=== PATIENT | male | born 1955 | race Caucasian/White ===

== ENCOUNTER 2017-08-19 08:58 | Emergency (ER) | payer MEDICARE, MEDICAID ==
[~2017-08-19] VITALS: Ht 170.2 cm; Wt 107.0 kg
[~2017-08-19 08:58] MED LIST: ACAR25TA2 PO; ASPI-1159 PO; ATOR20TA PO; DOCU-138 PO; GABA-531 PO; GLIP10TA10 PO; METF10002 PO; NIAC500T2 PO; OLME20TA14 PO; PIOG45TA5 PO; PRAS10TA6 PO; RANO500T3 PO; TAMS0.4C31 PO; UBID100C12 PO; novalog; novalog *
[2017-08-19 09:01] VITALS: BP 166/88
[2017-08-19] MEDS ORDERED: ACETAMINOPHEN 500MG TABLET PO ONE (10:15)
== END 2017-08-19 11:15 | disposition home or self-care (01) ==
LOC: ER 09:55
DX: M79.674 Pain in right toe(s) (principal); E11.9 Type 2 diabetes mellitus without complications; I51.9 Heart disease, unspecified; E78.00 Pure hypercholesterolemia, unspecified; Z86.73 Personal history of transient ischemic attack (TIA), and cerebral infarction without residual deficits; Z79.82 Long term (current) use of aspirin; Z88.8 Allergy status to other drugs, medicaments and biological substances; W22.09XA Striking against other stationary object, initial encounter; Y93.89 Activity, other specified; Y92.018 Other place in single-family (private) house as the place of occurrence of the external cause
CPT/HCPCS: 73630; 99284

== ENCOUNTER 2018-08-05 07:26 | Inpatient (IN) | payer MEDICARE, MEDICAID ==
[~2018-08-05] VITALS: Ht 165.1 cm; Wt 117.9 kg
[~2018-08-05 07:26] MED LIST changes: +METF-416 PO; -METF10002 PO
[2018-08-05] MEDS ORDERED: SODIUM CHLORIDE 0.9% 500 ML IV ONE (09:15)
[2018-08-05] MEDS ORDERED: HYDROCODONE/ACETAMINOPHEN 5/325MG TABLET PO ONE (09:15)
[2018-08-05] MEDS ORDERED: MORPHINE SULFATE 10 MG/ML CPJ IV ONE ×2 (11:15→13:30)
[2018-08-05] MEDS ORDERED: ONDANSETRON HCL 4MG/2ML INJ IV ONE (11:15)
[2018-08-05 11:27] LABS: BASOPHILS % 0.7 % (0.0-2.0); EOSINOPHILS % 1.4 % (0.0-5.0); HEMATOCRIT. 42.4 % (42.0-52.0); HEMOGLOBIN. 14.1 g/dL (14.0-18.0); MEAN CORPUSCULAR HEMOGLOBIN 30.5 pg (28.0-32.0); MEAN CORPUSCULAR VOLUME 91.9 fL (80.0-94.0); MEAN PLATELET VOLUME 10.3 fl (7.4-10.4); MONOCYTES % 8.6 % (2.0-8.0); NEUTROPHILS % 72.3 % (40.0-76.0); PLATELET 244 x1000/uL (130-400); RED BLOOD CELL COUNT 4.61 mill/uL (4.7-6.1); RED CELL DISTRIBUTION WIDTH 14.1 % (11.6-14.6)
[2018-08-05 11:28] LABS: CHLORIDE 103 mEq/L (98-107)
[2018-08-05 11:31] LABS: PARTIAL THROMBOPLASTIN TIME 26.3 sec (23.4-31.0); PROTHROMBIN TIME 9.7 sec (9.1-11.1)
[2018-08-05] MEDS ORDERED: DEXTROSE 50% WATER 50ML SYRINGE IV PRN (14:30)
[2018-08-05] MEDS: BLOOD SUGAR DIAGNOSTIC STRIP TEST SCH ×2 (17:00→20:27)
[2018-08-05 17:24] LABS: CLARITY URINE TURBID (CLEAR); COLOR URINE YELLOW (YELLOW); KETONES URINE NEGATIVE (NEGATIVE); LEUKOCYTE ESTERASE URINE 2+ (NEGATIVE); NITRITE URINE NEGATIVE (NEGATIVE); OCCULT BLOOD URINE TRACE (NEGATIVE); PROTEIN URINE TRACE (NEGATIVE); SPECIFIC GRAVITY URINE 1.037 (1.005-1.030); UROBILINOGEN URINE 0.2 E.U./dL (0.2-1.0)
[2018-08-05 17:47] VITALS: BP 171/91
[2018-08-05] MEDS: INSULIN LISPRO 100 UNITS/ML SUBCUT SCH ×2 (18:30→21:00)
[2018-08-05] MEDS: DOCUSATE SODIUM 100MG CAPSULE PO SCH (18:30)
[2018-08-05 20:00] VITALS: BP 150/73
[2018-08-05] MEDS: ATORVASTATIN CALCIUM 20MG TABLET PO SCH (20:23)
[2018-08-05] MEDS: RANOLAZINE 500 MG TAB.SR.12H PO SCH (20:23)
[2018-08-05] MEDS: GABAPENTIN 300MG CAPSULE PO SCH (21:17)
[2018-08-06] VITALS: BP 142/73
[2018-08-06 04:00] VITALS: BP 129/73
[2018-08-06] MEDS: GABAPENTIN 300MG CAPSULE PO SCH ×3 (06:11→21:00)
[2018-08-06] MEDS: BLOOD SUGAR DIAGNOSTIC STRIP TEST SCH ×4 (06:12→20:08)
[2018-08-06] MEDS: HYDROMORPHONE HCL/PF 2MG/ML CPJ IV PRN (06:20)
[2018-08-06] MEDS: INSULIN LISPRO 100 UNITS/ML SUBCUT SCH ×7 (06:25→20:36)
[2018-08-06 06:43] LABS: BASOPHILS % 0.6 % (0.0-2.0); EOSINOPHILS % 2.4 % (0.0-5.0); HEMATOCRIT. 39.3 % (42.0-52.0); HEMOGLOBIN. 12.9 g/dL (14.0-18.0); LYMPHOCYTES % 26.7 % (20.0-50.0); MEAN CORPUSCULAR HEMOGLOBIN 30.1 pg (28.0-32.0); MEAN CORPUSCULAR VOLUME 91.7 fL (80.0-94.0); MEAN PLATELET VOLUME 9.9 fl (7.4-10.4); MONOCYTES % 9.8 % (2.0-8.0); NEUTROPHILS % 60.5 % (40.0-76.0); PLATELET 215 x1000/uL (130-400); RED BLOOD CELL COUNT 4.28 mill/uL (4.7-6.1); RED CELL DISTRIBUTION WIDTH 14.1 % (11.6-14.6)
[2018-08-06 08:00] VITALS: BP 96/46
[2018-08-06] MEDS: TAMSULOSIN HCL 0.4MG SR CAPSULE PO SCH (09:00)
[2018-08-06] MEDS: DOCUSATE SODIUM 100MG CAPSULE PO SCH ×2 (09:12→16:43)
[2018-08-06] MEDS: LINAGLIPTIN 5MG TABLET PO SCH (09:13)
[2018-08-06] MEDS: RANOLAZINE 500 MG TAB.SR.12H PO SCH ×2 (09:13→20:34)
[2018-08-06] MEDS: PIOGLITAZONE 15MG TABLET PO SCH (09:13)
[2018-08-06] MEDS: ASPIRIN 81MG EC TABLET PO SCH (09:13)
[2018-08-06] MEDS: ONDANSETRON HCL 4MG/2ML INJ IV PRN (09:14)
[2018-08-06] MEDS: INSULIN GLARGINE UD 100 UNITS/ML SYR SUBCUT SCH (09:15)
[2018-08-06 09:56] LABS: CHLORIDE 105 mEq/L (98-107)
[2018-08-06 10:06] LABS: LDL CHOLESTEROL 74 mg/dL (5-100)
[2018-08-06 10:07] LABS: CREATINE KINASE 46 IU/L (39-308); CREATINE KINASE MB FRACTION 1.4 ng/mL (0.5-3.6); HDL CHOLESTEROL 41 mg/dL (40-59)
[2018-08-06 12:00] VITALS: BP_SYST 132; BP_SYST 135; BP_SYST 141; BP_DIAS 61; BP_DIAS 63; BP_DIAS 81
[2018-08-06] MEDS: TRAMADOL 50MG TABLET PO PRN ×2 (13:02→20:34)
[2018-08-06 16:40] VITALS: BP 115/56
[2018-08-06] MEDS: EFFIENT 10 MG PO SCH (16:43)
[2018-08-06 20:04] VITALS: BP 98/50
[2018-08-06] MEDS: ATORVASTATIN CALCIUM 20MG TABLET PO SCH (20:33)
[2018-08-07] VITALS: BP 128/69
[2018-08-07 05:00] VITALS: BP_SYST 128; BP_SYST 135; BP_SYST 143; BP_DIAS 63; BP_DIAS 68; BP_DIAS 69
[2018-08-07] MEDS: GABAPENTIN 300MG CAPSULE PO SCH ×2 (05:52→13:36)
[2018-08-07] MEDS: TRAMADOL 50MG TABLET PO PRN (05:53)
[2018-08-07] MEDS: BLOOD SUGAR DIAGNOSTIC STRIP TEST SCH ×2 (06:15→12:02)
[2018-08-07] MEDS: INSULIN LISPRO 100 UNITS/ML SUBCUT SCH ×4 (06:16→12:14)
[2018-08-07 06:52] LABS: BASOPHILS % 0.5 % (0.0-2.0); EOSINOPHILS % 1.7 % (0.0-5.0); HEMATOCRIT. 41.1 % (42.0-52.0); HEMOGLOBIN. 13.6 g/dL (14.0-18.0); LYMPHOCYTES % 23.7 % (20.0-50.0); MEAN CORPUSCULAR HEMOGLOBIN 30.4 pg (28.0-32.0); MEAN PLATELET VOLUME 9.4 fl (7.4-10.4); MONOCYTES % 10.8 % (2.0-8.0); NEUTROPHILS % 63.3 % (40.0-76.0); PLATELET 224 x1000/uL (130-400); RED BLOOD CELL COUNT 4.47 mill/uL (4.7-6.1); RED CELL DISTRIBUTION WIDTH 13.6 % (11.6-14.6)
[2018-08-07 07:08] LABS: CHLORIDE 105 mEq/L (98-107)
[2018-08-07] MEDS: PIOGLITAZONE 15MG TABLET PO SCH (08:15)
[2018-08-07] MEDS: TAMSULOSIN HCL 0.4MG SR CAPSULE PO SCH (08:19)
[2018-08-07] MEDS: RANOLAZINE 500 MG TAB.SR.12H PO SCH (08:20)
[2018-08-07] MEDS: DOCUSATE SODIUM 100MG CAPSULE PO SCH (08:20)
[2018-08-07] MEDS: LINAGLIPTIN 5MG TABLET PO SCH (08:20)
[2018-08-07] MEDS: EFFIENT 10 MG PO SCH (08:20)
[2018-08-07] MEDS: ASPIRIN 81MG EC TABLET PO SCH (08:20)
[2018-08-07] MEDS: HYDROMORPHONE HCL/PF 2MG/ML CPJ IV PRN (08:21)
[2018-08-07 08:27] VITALS: BP 128/75
[2018-08-07] MEDS: ONDANSETRON HCL 4MG/2ML INJ IV PRN (08:48)
[2018-08-07] MEDS: INSULIN GLARGINE UD 100 UNITS/ML SYR SUBCUT SCH (09:38)
[2018-08-07 13:39] VITALS: BP 123/82
== END 2018-08-07 15:36 | DRG 206 ==
LOC: ER 07:26 → 8WST 13:34 → EDBEDREQ 13:35 → CANRESERV 13:57 → ENRESERV 13:57 → EDBEDREQSVC 15:11 → ENRESERV 16:18
PROVIDERS: ADMIT Specialist; ATTEND Specialist
DX: S22.32XA Fracture of one rib, left side, initial encounter for closed fracture (principal); Z68.41 Body mass index [BMI] 40.0-44.9, adult; I69.354 Hemiplegia and hemiparesis following cerebral infarction affecting left non-dominant side; E66.01 Morbid (severe) obesity due to excess calories; G47.33 Obstructive sleep apnea (adult) (pediatric); E78.00 Pure hypercholesterolemia, unspecified; W18.39XA Other fall on same level, initial encounter; E11.65 Type 2 diabetes mellitus with hyperglycemia; E11.42 Type 2 diabetes mellitus with diabetic polyneuropathy; E11.51 Type 2 diabetes mellitus with diabetic peripheral angiopathy without gangrene; E78.5 Hyperlipidemia, unspecified; I11.9 Hypertensive heart disease without heart failure; N40.0 Benign prostatic hyperplasia without lower urinary tract symptoms; I25.10 Atherosclerotic heart disease of native coronary artery without angina pectoris; I25.2 Old myocardial infarction; Z79.84 Long term (current) use of oral hypoglycemic drugs; Z80.42 Family history of malignant neoplasm of prostate; Z81.1 Family history of alcohol abuse and dependence; Z82.49 Family history of ischemic heart disease and other diseases of the circulatory system; Z83.3 Family history of diabetes mellitus; Z95.1 Presence of aortocoronary bypass graft; Z95.5 Presence of coronary angioplasty implant and graft; Z88.8 Allergy status to other drugs, medicaments and biological substances; Z79.899 Other long term (current) drug therapy; Y93.89 Activity, other specified; Y92.89 Other specified places as the place of occurrence of the external cause; Y99.8 Other external cause status
CPT/HCPCS: 36415; 71045; 71101; 71250; 80048; 80061; 82550; 82553; 82962; 83036; 83735; 83880; 84443; 84484; 85379; 93005; 93970; 96361; 96374; 96375; 96376; 97162; 99285; J1170; J1815; J2270; J2405; J7040

== ENCOUNTER 2018-08-07 15:45 | Inpatient (IN) | payer MEDICARE, MEDICAID ==
[~2018-08-07] VITALS: Ht 165.1 cm; Wt 117.9 kg
[2018-08-07] MEDS ORDERED: ONDANSETRON HCL 4MG/2ML INJ IV PRN (17:45)
[2018-08-07] MEDS ORDERED: HYDROMORPHONE HCL/PF 2MG/ML CPJ IV PRN (17:45)
[2018-08-07] MEDS ORDERED: DEXTROSE 50% WATER 50ML SYRINGE IV PRN (18:00)
[2018-08-07 18:03] VITALS: BP 134/83
[2018-08-07 18:04] VITALS: BP 134/83
[2018-08-07 20:00] VITALS: BP 105/50
[2018-08-07] MEDS: RANOLAZINE 500 MG TAB.SR.12H PO SCH (21:37)
[2018-08-07] MEDS: GABAPENTIN 300MG CAPSULE PO SCH (21:37)
[2018-08-07] MEDS: ATORVASTATIN CALCIUM 20MG TABLET PO SCH (21:37)
[2018-08-07] MEDS: BLOOD SUGAR DIAGNOSTIC STRIP TEST SCH (21:37)
[2018-08-07] MEDS: INSULIN LISPRO 100 UNITS/ML SUBCUT SCH (22:02)
[2018-08-08] MEDS: BLOOD SUGAR DIAGNOSTIC STRIP TEST SCH ×4 (06:33→21:21)
[2018-08-08] MEDS: GABAPENTIN 300MG CAPSULE PO SCH ×3 (06:33→21:20)
[2018-08-08] MEDS: INSULIN LISPRO 100 UNITS/ML SUBCUT SCH ×7 (07:02→21:00)
[2018-08-08 07:42] LABS: BASOPHILS % 0.6 % (0.0-2.0); CHLORIDE 102 mEq/L (98-107); EOSINOPHILS % 0.9 % (0.0-5.0); HEMATOCRIT. 38.4 % (42.0-52.0); HEMOGLOBIN. 12.8 g/dL (14.0-18.0); LYMPHOCYTES % 14.2 % (20.0-50.0); MEAN CORPUSCULAR HEMOGLOBIN 30.8 pg (28.0-32.0); MEAN CORPUSCULAR VOLUME 92.2 fL (80.0-94.0); MEAN PLATELET VOLUME 9.5 fl (7.4-10.4); MONOCYTES % 10.8 % (2.0-8.0); NEUTROPHILS % 73.5 % (40.0-76.0); PLATELET 227 x1000/uL (130-400); RED BLOOD CELL COUNT 4.16 mill/uL (4.7-6.1); RED CELL DISTRIBUTION WIDTH 14.2 % (11.6-14.6)
[2018-08-08 08:08] VITALS: BP 134/101
[2018-08-08] MEDS: LINAGLIPTIN 5MG TABLET PO SCH (08:53)
[2018-08-08] MEDS: ASPIRIN 81MG EC TABLET PO SCH (08:54)
[2018-08-08] MEDS: RANOLAZINE 500 MG TAB.SR.12H PO SCH ×2 (08:54→21:21)
[2018-08-08] MEDS: PIOGLITAZONE 45MG TABLET PO SCH (08:54)
[2018-08-08] MEDS: TAMSULOSIN HCL 0.4MG SR CAPSULE PO SCH (08:55)
[2018-08-08] MEDS ORDERED: DOCUSATE SODIUM 100MG CAPSULE PO SCH (09:00)
[2018-08-08] MEDS: INSULIN GLARGINE UD 100 UNITS/ML SYR SUBCUT SCH (10:04)
[2018-08-08] MEDS: LACTULOSE 20G/30ML UDC PO SCH ×3 (10:23→16:41)
[2018-08-08] MEDS: DOCUSATE SODIUM 100MG CAPSULE PO SCH (16:54)
[2018-08-08 20:10] VITALS: BP 107/97
[2018-08-08] MEDS: POLYETHYLENE GLYCOL 3350 (17GM) 1 DOSE PACK PO SCH (21:00)
[2018-08-08] MEDS: ATORVASTATIN CALCIUM 20MG TABLET PO SCH (21:20)
[2018-08-09] MEDS: GABAPENTIN 300MG CAPSULE PO SCH ×3 (05:41→21:24)
[2018-08-09] MEDS: BLOOD SUGAR DIAGNOSTIC STRIP TEST SCH ×4 (05:41→20:46)
[2018-08-09] MEDS: INSULIN LISPRO 100 UNITS/ML SUBCUT SCH ×7 (07:00→21:00)
[2018-08-09 07:01] LABS: BASOPHILS % 0.5 % (0.0-2.0); EOSINOPHILS % 2.1 % (0.0-5.0); HEMATOCRIT. 37.7 % (42.0-52.0); HEMOGLOBIN. 12.5 g/dL (14.0-18.0); MEAN CORPUSCULAR HEMOGLOBIN 30.4 pg (28.0-32.0); MEAN CORPUSCULAR VOLUME 91.8 fL (80.0-94.0); MEAN PLATELET VOLUME 9.7 fl (7.4-10.4); MONOCYTES % 13.2 % (2.0-8.0); NEUTROPHILS % 57.2 % (40.0-76.0); PLATELET 212 x1000/uL (130-400)
[2018-08-09 07:11] LABS: CHLORIDE 104 mEq/L (98-107)
[2018-08-09 07:16] LABS: PHOSPHORUS 4.7 mg/dL (2.5-4.9)
[2018-08-09 07:17] LABS: TOTAL IRON BINDING CAPACITY 237 ug/dL (250-450)
[2018-08-09 07:40] LABS: PROSTRATE SPECIFIC AG TOTAL 0.37 ng/mL (0.0-4.0)
[2018-08-09 08:00] VITALS: BP 127/71
[2018-08-09] MEDS: ASPIRIN 81MG EC TABLET PO SCH (09:00)
[2018-08-09] MEDS: PIOGLITAZONE 45MG TABLET PO SCH (09:00)
[2018-08-09] MEDS: DOCUSATE SODIUM 100MG CAPSULE PO SCH ×2 (09:01→17:05)
[2018-08-09] MEDS: LINAGLIPTIN 5MG TABLET PO SCH (09:01)
[2018-08-09] MEDS: RANOLAZINE 500 MG TAB.SR.12H PO SCH ×2 (09:01→20:40)
[2018-08-09] MEDS: TAMSULOSIN HCL 0.4MG SR CAPSULE PO SCH (09:01)
[2018-08-09] MEDS: INSULIN GLARGINE UD 100 UNITS/ML SYR SUBCUT SCH (10:50)
[2018-08-09 20:00] VITALS: BP 102/54
[2018-08-09] MEDS: ATORVASTATIN CALCIUM 20MG TABLET PO SCH (20:41)
[2018-08-09] MEDS: POLYETHYLENE GLYCOL 3350 (17GM) 1 DOSE PACK PO SCH (20:42)
[2018-08-09] MEDS: TRAMADOL 50MG TABLET PO PRN (20:42)
[2018-08-10] MEDS: BLOOD SUGAR DIAGNOSTIC STRIP TEST SCH ×4 (05:37→21:50)
[2018-08-10] MEDS: GABAPENTIN 300MG CAPSULE PO SCH ×3 (05:38→21:50)
[2018-08-10] MEDS: INSULIN LISPRO 100 UNITS/ML SUBCUT SCH ×7 (07:47→21:00)
[2018-08-10 08:09] VITALS: BP 167/94
[2018-08-10] MEDS: LINAGLIPTIN 5MG TABLET PO SCH (08:17)
[2018-08-10] MEDS: PIOGLITAZONE 45MG TABLET PO SCH (08:17)
[2018-08-10] MEDS: ASPIRIN 81MG EC TABLET PO SCH (08:17)
[2018-08-10] MEDS: RANOLAZINE 500 MG TAB.SR.12H PO SCH ×2 (08:18→21:50)
[2018-08-10] MEDS: DOCUSATE SODIUM 100MG CAPSULE PO SCH ×2 (08:18→16:34)
[2018-08-10] MEDS: TAMSULOSIN HCL 0.4MG SR CAPSULE PO SCH (08:18)
[2018-08-10] MEDS: INSULIN GLARGINE UD 100 UNITS/ML SYR SUBCUT SCH (10:04)
[2018-08-10 20:00] VITALS: BP 146/71
[2018-08-10] MEDS: POLYETHYLENE GLYCOL 3350 (17GM) 1 DOSE PACK PO SCH (21:50)
[2018-08-10] MEDS: ATORVASTATIN CALCIUM 20MG TABLET PO SCH (22:02)
[2018-08-11] MEDS: GABAPENTIN 300MG CAPSULE PO SCH ×3 (06:09→22:00)
[2018-08-11 06:41] LABS: BASOPHILS % 0.7 % (0.0-2.0); EOSINOPHILS % 2.9 % (0.0-5.0); HEMATOCRIT. 39.4 % (42.0-52.0); HEMOGLOBIN. 13.1 g/dL (14.0-18.0); LYMPHOCYTES % 22.5 % (20.0-50.0); MEAN CORPUSCULAR HEMOGLOBIN 30.5 pg (28.0-32.0); MEAN CORPUSCULAR VOLUME 91.4 fL (80.0-94.0); MONOCYTES % 10.9 % (2.0-8.0); PLATELET 223 x1000/uL (130-400); RED BLOOD CELL COUNT 4.31 mill/uL (4.7-6.1); RED CELL DISTRIBUTION WIDTH 14.2 % (11.6-14.6)
[2018-08-11 06:55] LABS: CHLORIDE 104 mEq/L (98-107)
[2018-08-11] MEDS: INSULIN LISPRO 100 UNITS/ML SUBCUT SCH ×7 (07:00→22:03)
[2018-08-11] MEDS: BLOOD SUGAR DIAGNOSTIC STRIP TEST SCH ×4 (07:23→21:31)
[2018-08-11 08:03] VITALS: BP 138/76
[2018-08-11] MEDS: RANOLAZINE 500 MG TAB.SR.12H PO SCH ×2 (09:12→22:00)
[2018-08-11] MEDS: DOCUSATE SODIUM 100MG CAPSULE PO SCH ×2 (09:12→17:16)
[2018-08-11] MEDS: ASPIRIN 81MG EC TABLET PO SCH (09:12)
[2018-08-11] MEDS: TAMSULOSIN HCL 0.4MG SR CAPSULE PO SCH (09:12)
[2018-08-11] MEDS: LINAGLIPTIN 5MG TABLET PO SCH (09:13)
[2018-08-11] MEDS: PIOGLITAZONE 45MG TABLET PO SCH (09:13)
[2018-08-11] MEDS: INSULIN GLARGINE UD 100 UNITS/ML SYR SUBCUT SCH (10:00)
[2018-08-11 20:00] VITALS: BP 143/78
[2018-08-11] MEDS: ATORVASTATIN CALCIUM 20MG TABLET PO SCH (22:00)
[2018-08-11] MEDS: POLYETHYLENE GLYCOL 3350 (17GM) 1 DOSE PACK PO SCH (22:00)
[2018-08-12] MEDS: GABAPENTIN 300MG CAPSULE PO SCH ×3 (05:43→21:02)
[2018-08-12] MEDS: BLOOD SUGAR DIAGNOSTIC STRIP TEST SCH ×4 (05:43→21:02)
[2018-08-12 07:53] VITALS: BP 141/86
[2018-08-12] MEDS: TAMSULOSIN HCL 0.4MG SR CAPSULE PO SCH (08:11)
[2018-08-12] MEDS: DOCUSATE SODIUM 100MG CAPSULE PO SCH ×2 (08:11→17:28)
[2018-08-12] MEDS: LINAGLIPTIN 5MG TABLET PO SCH (08:11)
[2018-08-12] MEDS: ASPIRIN 81MG EC TABLET PO SCH (08:11)
[2018-08-12] MEDS: PIOGLITAZONE 45MG TABLET PO SCH (08:11)
[2018-08-12] MEDS: RANOLAZINE 500 MG TAB.SR.12H PO SCH ×2 (08:11→21:02)
[2018-08-12] MEDS: TRAMADOL 50MG TABLET PO PRN (08:15)
[2018-08-12] MEDS: INSULIN LISPRO 100 UNITS/ML SUBCUT SCH ×7 (08:20→21:29)
[2018-08-12] MEDS: INSULIN GLARGINE UD 100 UNITS/ML SYR SUBCUT SCH (10:31)
[2018-08-12] MEDS ORDERED: TRAMADOL 50MG TABLET PO PRN (19:00)
[2018-08-12 20:07] VITALS: BP 137/64
[2018-08-12] MEDS: ATORVASTATIN CALCIUM 20MG TABLET PO SCH (21:02)
[2018-08-12] MEDS: POLYETHYLENE GLYCOL 3350 (17GM) 1 DOSE PACK PO SCH (21:02)
[2018-08-13] MEDS: GABAPENTIN 300MG CAPSULE PO SCH ×3 (05:32→21:02)
[2018-08-13] MEDS: INSULIN LISPRO (LOW DOSE) 100 UNITS/ML SUBCUT SCH ×3 (06:22→17:00)
[2018-08-13] MEDS: BLOOD SUGAR DIAGNOSTIC STRIP TEST SCH ×4 (06:22→21:06)
[2018-08-13] MEDS ORDERED: INSULIN LISPRO 100 UNITS/ML SUBCUT SCH (07:00)
[2018-08-13 07:51] LABS: CHLORIDE 104 mEq/L (98-107)
[2018-08-13 07:59] LABS: BASOPHILS % 0.7 % (0.0-2.0); EOSINOPHILS % 2.5 % (0.0-5.0); HEMATOCRIT. 39.3 % (42.0-52.0); LYMPHOCYTES % 24.7 % (20.0-50.0); MEAN CORPUSCULAR HEMOGLOBIN 30.2 pg (28.0-32.0); MEAN CORPUSCULAR VOLUME 91.4 fL (80.0-94.0); MEAN PLATELET VOLUME 9.6 fl (7.4-10.4); MONOCYTES % 10.6 % (2.0-8.0); NEUTROPHILS % 61.5 % (40.0-76.0); PLATELET 213 x1000/uL (130-400); RED BLOOD CELL COUNT 4.29 mill/uL (4.7-6.1); RED CELL DISTRIBUTION WIDTH 14.4 % (11.6-14.6)
[2018-08-13 08:00] VITALS: BP 150/77
[2018-08-13 08:06] LABS: PHOSPHORUS 4.5 mg/dL (2.5-4.9)
[2018-08-13] MEDS: DOCUSATE SODIUM 100MG CAPSULE PO SCH ×2 (09:13→16:52)
[2018-08-13] MEDS: RANOLAZINE 500 MG TAB.SR.12H PO SCH ×2 (09:13→21:02)
[2018-08-13] MEDS: ASPIRIN 81MG EC TABLET PO SCH (09:14)
[2018-08-13] MEDS: PIOGLITAZONE 45MG TABLET PO SCH (09:14)
[2018-08-13] MEDS: LINAGLIPTIN 5MG TABLET PO SCH (09:14)
[2018-08-13] MEDS: TAMSULOSIN HCL 0.4MG SR CAPSULE PO SCH (09:14)
[2018-08-13] MEDS: INSULIN LISPRO 100 UNITS/ML SUBCUT SCH ×3 (09:15→17:48)
[2018-08-13] MEDS: INSULIN GLARGINE UD 100 UNITS/ML SYR SUBCUT SCH (10:38)
[2018-08-13] MEDS: LOSARTAN POTASSIUM 25 MG TABLET PO SCH (14:42)
[2018-08-13 17:10] LABS: 25-HYDROXY VITAMIN D3 30 ng/mL (.)
[2018-08-13 20:00] VITALS: BP 115/63
[2018-08-13] MEDS: POLYETHYLENE GLYCOL 3350 (17GM) 1 DOSE PACK PO SCH (21:00)
[2018-08-13] MEDS: ATORVASTATIN CALCIUM 20MG TABLET PO SCH (21:02)
[2018-08-14] MEDS: GABAPENTIN 300MG CAPSULE PO SCH ×3 (06:00→21:13)
[2018-08-14] MEDS: BLOOD SUGAR DIAGNOSTIC STRIP TEST SCH ×4 (06:03→20:37)
[2018-08-14] MEDS: INSULIN LISPRO (LOW DOSE) 100 UNITS/ML SUBCUT SCH ×3 (06:22→18:07)
[2018-08-14 07:00] VITALS: BP 134/71
[2018-08-14] MEDS: INSULIN LISPRO 100 UNITS/ML SUBCUT SCH ×3 (07:58→18:07)
[2018-08-14] MEDS: LINAGLIPTIN 5MG TABLET PO SCH (10:30)
[2018-08-14] MEDS: RANOLAZINE 500 MG TAB.SR.12H PO SCH ×2 (10:30→20:36)
[2018-08-14] MEDS: PIOGLITAZONE 45MG TABLET PO SCH (10:30)
[2018-08-14] MEDS: DOCUSATE SODIUM 100MG CAPSULE PO SCH ×2 (10:30→16:59)
[2018-08-14] MEDS: LOSARTAN POTASSIUM 25 MG TABLET PO SCH (10:30)
[2018-08-14] MEDS: ASPIRIN 81MG EC TABLET PO SCH (10:30)
[2018-08-14] MEDS: TAMSULOSIN HCL 0.4MG SR CAPSULE PO SCH (10:31)
[2018-08-14] MEDS: INSULIN GLARGINE UD 100 UNITS/ML SYR SUBCUT SCH (11:07)
[2018-08-14 20:00] VITALS: BP 107/65
[2018-08-14] MEDS: ATORVASTATIN CALCIUM 20MG TABLET PO SCH (20:36)
[2018-08-14] MEDS: POLYETHYLENE GLYCOL 3350 (17GM) 1 DOSE PACK PO SCH (20:37)
[2018-08-15] MEDS: GABAPENTIN 300MG CAPSULE PO SCH ×3 (05:50→21:08)
[2018-08-15] MEDS: BLOOD SUGAR DIAGNOSTIC STRIP TEST SCH ×4 (05:50→20:42)
[2018-08-15] MEDS: INSULIN LISPRO (LOW DOSE) 100 UNITS/ML SUBCUT SCH ×3 (07:27→17:19)
[2018-08-15 08:08] VITALS: BP 142/94
[2018-08-15] MEDS: TAMSULOSIN HCL 0.4MG SR CAPSULE PO SCH (08:27)
[2018-08-15] MEDS: PIOGLITAZONE 45MG TABLET PO SCH (08:27)
[2018-08-15] MEDS: LOSARTAN POTASSIUM 25 MG TABLET PO SCH (08:27)
[2018-08-15] MEDS: DOCUSATE SODIUM 100MG CAPSULE PO SCH ×2 (08:27→17:18)
[2018-08-15] MEDS: RANOLAZINE 500 MG TAB.SR.12H PO SCH ×2 (08:27→20:38)
[2018-08-15] MEDS: ASPIRIN 81MG EC TABLET PO SCH (08:27)
[2018-08-15] MEDS: INSULIN GLARGINE UD 100 UNITS/ML SYR SUBCUT SCH (08:28)
[2018-08-15] MEDS: LINAGLIPTIN 5MG TABLET PO SCH (08:28)
[2018-08-15] MEDS: INSULIN LISPRO 100 UNITS/ML SUBCUT SCH ×3 (08:31→17:20)
[2018-08-15 20:00] VITALS: BP 111/68
[2018-08-15] MEDS: ATORVASTATIN CALCIUM 20MG TABLET PO SCH (20:38)
[2018-08-15] MEDS: POLYETHYLENE GLYCOL 3350 (17GM) 1 DOSE PACK PO SCH (20:38)
[2018-08-16] MEDS: GABAPENTIN 300MG CAPSULE PO SCH (06:13)
[2018-08-16] MEDS: BLOOD SUGAR DIAGNOSTIC STRIP TEST SCH ×2 (06:16→11:19)
[2018-08-16] MEDS: INSULIN LISPRO (LOW DOSE) 100 UNITS/ML SUBCUT SCH ×2 (06:41→14:32)
[2018-08-16] MEDS: INSULIN LISPRO 100 UNITS/ML SUBCUT SCH ×2 (07:00→14:33)
[2018-08-16 08:00] VITALS: BP 96/69
[2018-08-16] MEDS: DOCUSATE SODIUM 100MG CAPSULE PO SCH (08:23)
[2018-08-16] MEDS: TAMSULOSIN HCL 0.4MG SR CAPSULE PO SCH (08:23)
[2018-08-16] MEDS: LOSARTAN POTASSIUM 25 MG TABLET PO SCH (08:24)
[2018-08-16] MEDS: RANOLAZINE 500 MG TAB.SR.12H PO SCH (08:24)
[2018-08-16] MEDS: PIOGLITAZONE 45MG TABLET PO SCH (08:24)
[2018-08-16] MEDS: ASPIRIN 81MG EC TABLET PO SCH (08:24)
[2018-08-16] MEDS: LINAGLIPTIN 5MG TABLET PO SCH (08:24)
[2018-08-16] MEDS: INSULIN GLARGINE UD 100 UNITS/ML SYR SUBCUT SCH (10:28)
[2018-08-16 12:21] VITALS: BP 96/69
== END 2018-08-16 14:00 | disposition home health service (06) | DRG 206 ==
PROVIDERS: ADMIT Physical Medicine & Rehabilitation Spinal Cord Injury Medicine; ATTEND Specialist
DX: S22.32XA Fracture of one rib, left side, initial encounter for closed fracture (principal); Z68.41 Body mass index [BMI] 40.0-44.9, adult; I69.354 Hemiplegia and hemiparesis following cerebral infarction affecting left non-dominant side; R26.9 Unspecified abnormalities of gait and mobility; R53.81 Other malaise; E78.00 Pure hypercholesterolemia, unspecified; I25.10 Atherosclerotic heart disease of native coronary artery without angina pectoris; E11.42 Type 2 diabetes mellitus with diabetic polyneuropathy; W18.39XA Other fall on same level, initial encounter; E11.65 Type 2 diabetes mellitus with hyperglycemia; E78.5 Hyperlipidemia, unspecified; I10 Essential (primary) hypertension; Y93.01 Activity, walking, marching and hiking; E55.9 Vitamin D deficiency, unspecified; M79.609 Pain in unspecified limb; E11.51 Type 2 diabetes mellitus with diabetic peripheral angiopathy without gangrene; N40.0 Benign prostatic hyperplasia without lower urinary tract symptoms; G47.33 Obstructive sleep apnea (adult) (pediatric); E66.01 Morbid (severe) obesity due to excess calories; Z95.1 Presence of aortocoronary bypass graft; Y99.8 Other external cause status; Z95.5 Presence of coronary angioplasty implant and graft; Z88.8 Allergy status to other drugs, medicaments and biological substances; Z82.49 Family history of ischemic heart disease and other diseases of the circulatory system; Z83.3 Family history of diabetes mellitus; I25.2 Old myocardial infarction; Y92.091 Bathroom in other non-institutional residence as the place of occurrence of the external cause; Z79.82 Long term (current) use of aspirin; Z79.4 Long term (current) use of insulin
CPT/HCPCS: 36415; 80048; 82306; 82607; 82728; 82746; 82962; 83036; 83540; 83550; 83735; 84100; 84134; 84153; 84443; 92523; 93970; 97112; 97116; 97162; 97166; 97530; 97535; G0515; J1170; J1815; J2405; G0103

== ENCOUNTER 2019-10-12 06:22 | Inpatient (IN) | payer MEDICARE, MEDICAID ==
[~2019-10-12] VITALS: Ht 170.2 cm; Wt 107.5 kg
[2019-10-12] VITALS (7 sets, daily range): BP systolic 133–157; BP diastolic 75–91
[~2019-10-12 06:22] MED LIST changes: -ASPI-1159 PO; +ASPI-1497 PO; +OLME20TA13 PO; -OLME20TA14 PO; -novalog; -novalog *
[2019-10-12] MEDS ORDERED: CYAN100086 PO (07:57)
[2019-10-12] MEDS ORDERED: GLIM4TAB36 MT (07:57)
[2019-10-12] MEDS ORDERED: DAPA10TA MT (07:57)
[2019-10-12] MEDS ORDERED: METO25TA6 PO (07:57)
[2019-10-12] MEDS ORDERED: ASPIRIN/SOD BICARB/CITRIC ACID 324MG TAB EFF ONE (08:06)
[2019-10-12] MEDS ORDERED: IOHEXOL-300 100 ML BOTTLE ONE (08:06)
[2019-10-12] MEDS ORDERED: IODIXANOL 320MG/ML 100 ML BOTTLE IV ONE (08:07)
[2019-10-12] MEDS ORDERED: LIDOCAINE HCL 1% 20ML VIAL (Pyxis) INJ ONE ×2 (08:07→08:21)
[2019-10-12] MEDS ORDERED: FENTANYL CITRATE/PF 50MCG/ML 2ML VIAL ONE (08:11)
[2019-10-12] MEDS ORDERED: MIDAZOLAM HCL 2 MG/2 ML VIAL ONE (08:11)
[2019-10-12] MEDS ORDERED: NITROGLYCERIN 50MG PREMIX 250 ML IV ONE (08:48)
[2019-10-12] MEDS ORDERED: MORPHINE SULFATE 2 MG/ML CPJ (NOT FOR IM USE) IV PRN ×2 (10:15)
[2019-10-12] MEDS ORDERED: DEXTROSE 50% WATER 50ML SYRINGE IV PRN (10:15)
[2019-10-12] MEDS ORDERED: ACETAMINOPHEN 325MG TABLET PO PRN (10:15)
[2019-10-12] MEDS ORDERED: ATROPINE SULFATE 1MG/10ML SYR IV PRN (10:15)
[2019-10-12] MEDS ORDERED: ONDANSETRON HCL 4MG/2ML INJ IV PRN (10:15)
[2019-10-12] MEDS ORDERED: NON FORMULARY PATIENT HOME MED XX SCH (10:30)
[2019-10-12] MEDS: BLOOD SUGAR DIAGNOSTIC STRIP TEST SCH ×3 (12:13→21:00)
[2019-10-12] MEDS: INSULIN LISPRO 100 UNITS/ML SUBCUT SCH ×3 (12:20→21:52)
[2019-10-12] MEDS ORDERED: NITROGLYCERIN 50MCG/ML 10ML VIAL (CATH LAB) IV ONE (12:39)
[2019-10-12] MEDS ORDERED: HEPARIN SODIUM 1,000 UNIT/1ML VIAL IV ONE (12:39)
[2019-10-12] MEDS ORDERED: SODIUM CHLORIDE 0.45% 1,000 ML IV ONE (12:45)
[2019-10-12] MEDS ORDERED: ATORVASTATIN CALCIUM 40MG TABLET PO SCH (21:00)
[2019-10-12] MEDS: LOSARTAN POTASSIUM 25 MG TABLET PO SCH (21:59)
[2019-10-12] MEDS: METOPROLOL TARTRATE 25MG TABLET PO SCH (21:59)
[2019-10-13] VITALS (8 sets, daily range): BP systolic 114–163; BP diastolic 76–95
[2019-10-13] MEDS: BLOOD SUGAR DIAGNOSTIC STRIP TEST SCH (06:37)
[2019-10-13 07:03] LABS: BASOPHILS % 0.6 % (0.0-2.0); HEMATOCRIT. 41.1 % (42.0-52.0); HEMOGLOBIN. 14.1 g/dL (14.0-18.0); LYMPHOCYTES % 23.1 % (20.0-50.0); MEAN CORPUSCULAR HEMOGLOBIN 31.4 pg (28.0-32.0); MEAN PLATELET VOLUME 9.4 fl (7.4-10.4); MONOCYTES % 10.4 % (2.0-8.0); NEUTROPHILS % 63.9 % (40.0-76.0); PLATELET 188 x1000/uL (130-400); RED BLOOD CELL COUNT 4.51 mill/uL (4.7-6.1); RED CELL DISTRIBUTION WIDTH 14.1 % (11.6-14.6)
[2019-10-13 07:21] LABS: CHLORIDE 106 mEq/L (98-107)
[2019-10-13] MEDS: LOSARTAN POTASSIUM 25 MG TABLET PO SCH (07:31)
[2019-10-13] MEDS: METOPROLOL TARTRATE 25MG TABLET PO SCH (07:31)
[2019-10-13] MEDS: INSULIN LISPRO 100 UNITS/ML SUBCUT SCH (07:32)
[2019-10-13] MEDS ORDERED: PRASUGREL 10 MG PO SCH ×2 (09:00)
[2019-10-13] MEDS ORDERED: TAMSULOSIN HCL 0.4MG SR CAPSULE PO SCH (09:00)
== END 2019-10-13 12:05 | disposition home or self-care (01) | DRG 272 ==
LOC: CCL 06:22 → 3WST 06:23
PROVIDERS: ADMIT Specialist; ATTEND Specialist
PROC: 04CM3ZZ Extirpation of Matter from Right Popliteal Artery, Percutaneous Approach (ICD-10-PCS; principal; 2019-10-12)
PROC: 047M3ZZ Dilation of Right Popliteal Artery, Percutaneous Approach (ICD-10-PCS; 2019-10-12)
PROC: 047P3ZZ Dilation of Right Anterior Tibial Artery, Percutaneous Approach (ICD-10-PCS; 2019-10-12)
PROC: B41F1ZZ Fluoroscopy of Right Lower Extremity Arteries using Low Osmolar Contrast (ICD-10-PCS; 2019-10-12)
DX: E11.51 Type 2 diabetes mellitus with diabetic peripheral angiopathy without gangrene (principal); E11.42 Type 2 diabetes mellitus with diabetic polyneuropathy; E66.01 Morbid (severe) obesity due to excess calories; E78.00 Pure hypercholesterolemia, unspecified; E78.5 Hyperlipidemia, unspecified; I10 Essential (primary) hypertension; I25.10 Atherosclerotic heart disease of native coronary artery without angina pectoris; I25.82 Chronic total occlusion of coronary artery; Z79.02 Long term (current) use of antithrombotics/antiplatelets; Z79.84 Long term (current) use of oral hypoglycemic drugs; Z79.899 Other long term (current) drug therapy; Z95.1 Presence of aortocoronary bypass graft; Z95.5 Presence of coronary angioplasty implant and graft; Z98.62 Peripheral vascular angioplasty status; Z68.37 Body mass index [BMI] 37.0-37.9, adult
CPT/HCPCS: 36415; 80048; 82962; 83036; 85025; 85347; 93005; J1644; J1815; J2250; J3010; J3490; Q9967

== ENCOUNTER → 2020-01-19 | Outpatient (CLI) | payer MEDICARE, MEDICAID ==
[~2020-01-19] MED LIST changes: +CLOP75TA4 MT; +CYAN100086 PO; +DAPA10TA MT; +GLIM4TAB36 MT; +METO25TA6 PO
== END | disposition home or self-care (01) ==
LOC: RAD 09:28
PROVIDERS: ATTEND Podiatrist Foot & Ankle Surgery
DX: M25.572 Pain in left ankle and joints of left foot (principal)
CPT/HCPCS: 73630

== ENCOUNTER → 2020-03-27 | Outpatient (CLI) | payer MEDICARE, MEDICAID | END | disposition home or self-care (01) | LOC: LAB 08:29 | PROVIDERS: ATTEND Specialist | DX: R05 Cough (principal); Z20.828 Contact with and (suspected) exposure to other viral communicable diseases | CPT/HCPCS: C9803; U0003 ==

== ENCOUNTER → 2020-03-28 | Day surgery (SDC) | payer MEDICARE, MEDICAID ==
[~2020-03-28] VITALS: Ht 170.2 cm; Wt 100.7 kg
[~2020-03-28] MED LIST changes: +ACETAMINOPHEN 325MG TABLET PO PRN; +ASPIRIN/SOD BICARB/CITRIC ACID 324MG TAB EFF ONE; +FENTANYL CITRATE/PF 50MCG/ML 2ML VIAL ONE; +HEPARIN SODIUM 1,000 UNIT/1ML VIAL IV ONE; +IODIXANOL 320MG/ML 100 ML BOTTLE IV ONE; +IOHEXOL-300 100 ML BOTTLE ONE; +LIDOCAINE HCL 1% 20ML VIAL (Pyxis) INJ ONE; +MIDAZOLAM HCL 2 MG/2 ML VIAL ONE; +MORPHINE SULFATE 2 MG/ML CPJ (NOT FOR IM USE) IV PRN
[2020-03-28 12:05] VITALS: BP 166/84
== END | disposition home or self-care (01) ==
LOC: CCL 06:25
PROVIDERS: ATTEND Specialist
DX: I25.10 Atherosclerotic heart disease of native coronary artery without angina pectoris (principal); I11.9 Hypertensive heart disease without heart failure; E78.2 Mixed hyperlipidemia; E11.9 Type 2 diabetes mellitus without complications; E66.3 Overweight; Z86.73 Personal history of transient ischemic attack (TIA), and cerebral infarction without residual deficits; Z79.82 Long term (current) use of aspirin; Z79.84 Long term (current) use of oral hypoglycemic drugs; Z79.899 Other long term (current) drug therapy; Z68.35 Body mass index [BMI] 35.0-35.9, adult; Z87.891 Personal history of nicotine dependence
CPT/HCPCS: 82962; 85347; 93459; C1769; C1887; C1893; J1644; J2250; J2270; J3010; J3490; Q9967

== ENCOUNTER → 2020-04-10 | Outpatient (CLI) | payer MEDICARE, MEDICAID ==
[~2020-04-10] MED LIST changes: -ACETAMINOPHEN 325MG TABLET PO PRN; -ASPIRIN/SOD BICARB/CITRIC ACID 324MG TAB EFF ONE; -FENTANYL CITRATE/PF 50MCG/ML 2ML VIAL ONE; -HEPARIN SODIUM 1,000 UNIT/1ML VIAL IV ONE; -IODIXANOL 320MG/ML 100 ML BOTTLE IV ONE; -IOHEXOL-300 100 ML BOTTLE ONE; -LIDOCAINE HCL 1% 20ML VIAL (Pyxis) INJ ONE; -MIDAZOLAM HCL 2 MG/2 ML VIAL ONE; -MORPHINE SULFATE 2 MG/ML CPJ (NOT FOR IM USE) IV PRN
== END | disposition home or self-care (01) ==
LOC: RAD 08:00
PROVIDERS: ATTEND Specialist
DX: R05 Cough (principal); Z20.828 Contact with and (suspected) exposure to other viral communicable diseases
CPT/HCPCS: 87635

== ENCOUNTER 2020-04-11 06:23 | Inpatient (IN) | payer MEDICARE, MEDICAID ==
[~2020-04-11] VITALS: Ht 170.2 cm; Wt 102.2 kg
[2020-04-11] VITALS (9 sets, daily range): BP systolic 129–162; BP diastolic 69–88
[2020-04-11] MEDS ORDERED: IODIXANOL 320MG/ML 100 ML BOTTLE IV ONE (07:32)
[2020-04-11] MEDS ORDERED: LIDOCAINE HCL 1% 20ML VIAL (Pyxis) INJ ONE (07:32)
[2020-04-11] MEDS ORDERED: FENTANYL CITRATE/PF 50MCG/ML 2ML VIAL ONE (07:32)
[2020-04-11] MEDS ORDERED: MIDAZOLAM HCL 2 MG/2 ML VIAL ONE ×2 (07:32→08:35)
[2020-04-11] MEDS ORDERED: ASPIRIN/SOD BICARB/CITRIC ACID 324MG TAB EFF ONE (07:54)
[2020-04-11] MEDS ORDERED: IOHEXOL-300 100 ML BOTTLE ONE (08:17)
[2020-04-11] MEDS ORDERED: CLOPIDOGREL 75MG TABLET ONE (08:44)
[2020-04-11] MEDS ORDERED: CLOPIDOGREL 75MG TABLET PO ONE (09:15)
[2020-04-11] MEDS ORDERED: MORPHINE SULFATE 2 MG/ML CPJ (NOT FOR IM USE) IV PRN (09:15)
[2020-04-11] MEDS ORDERED: SODIUM CHLORIDE 0.45% 1,000 ML IV ONE (09:15)
[2020-04-11] MEDS ORDERED: ONDANSETRON HCL 4MG/2ML INJ IV PRN (09:15)
[2020-04-11] MEDS ORDERED: ATROPINE SULFATE 1MG/10ML SYR IV PRN (09:15)
[2020-04-11] MEDS ORDERED: HEPARIN SODIUM 1,000 UNIT/1ML VIAL IV ONE (09:15)
[2020-04-11] MEDS ORDERED: DEXTROSE 50% WATER 50ML SYRINGE IV PRN (09:15)
[2020-04-11] MEDS: BLOOD SUGAR DIAGNOSTIC STRIP TEST SCH ×3 (11:04→21:00)
[2020-04-11] MEDS: INSULIN LISPRO 100 UNITS/ML SUBCUT SCH ×3 (11:06→21:11)
[2020-04-11] MEDS ORDERED: CLONIDINE 0.1MG TABLET PO PRN (12:30)
[2020-04-11] MEDS ORDERED: AMLODIPINE 5MG TABLET PO SCH (12:30)
[2020-04-11] MEDS: GABAPENTIN 100MG CAPSULE PO SCH ×2 (13:20→21:11)
[2020-04-11] MEDS: TAMSULOSIN HCL 0.4MG SR CAPSULE PO SCH (16:16)
[2020-04-11] MEDS: ACETAMINOPHEN 325MG TABLET PO PRN (17:49)
[2020-04-11] MEDS: ATORVASTATIN CALCIUM 40MG TABLET PO SCH (21:10)
[2020-04-12] VITALS (12 sets, daily range): BP systolic 120–172; BP diastolic 61–77
[2020-04-12] MEDS: GABAPENTIN 100MG CAPSULE PO SCH ×3 (06:13→22:10)
[2020-04-12] MEDS: BLOOD SUGAR DIAGNOSTIC STRIP TEST SCH ×4 (06:13→20:58)
[2020-04-12 06:59] LABS: BASOPHILS % 0.3 % (0.0-2.0); EOSINOPHILS % 0.3 % (0.0-5.0); HEMATOCRIT. 37.7 % (42.0-52.0); HEMOGLOBIN. 12.6 g/dL (14.0-18.0); LYMPHOCYTES % 9.1 % (20.0-50.0); MEAN CORPUSCULAR HEMOGLOBIN 29.7 pg (28.0-32.0); MEAN CORPUSCULAR VOLUME 88.8 fL (80.0-94.0); MEAN PLATELET VOLUME 9.9 fl (7.4-10.4); MONOCYTES % 7.6 % (2.0-8.0); NEUTROPHILS % 82.7 % (40.0-76.0); PLATELET 165 x1000/uL (130-400); RED BLOOD CELL COUNT 4.25 mill/uL (4.7-6.1); RED CELL DISTRIBUTION WIDTH 14.5 % (11.6-14.6)
[2020-04-12 07:07] LABS: CHLORIDE 103 mEq/L (98-107)
[2020-04-12] MEDS: INSULIN LISPRO 100 UNITS/ML SUBCUT SCH ×7 (08:54→20:57)
[2020-04-12] MEDS: CLOPIDOGREL 75MG TABLET PO SCH (08:55)
[2020-04-12] MEDS: ASPIRIN 325MG TABLET PO SCH (08:55)
[2020-04-12] MEDS: TAMSULOSIN HCL 0.4MG SR CAPSULE PO SCH (08:56)
[2020-04-12] MEDS: METOPROLOL TARTRATE 25MG TABLET PO SCH (08:56)
[2020-04-12] MEDS: INSULIN GLARGINE UD 100 UNITS/ML SYR SUBCUT SCH (10:46)
[2020-04-12 12:50] LABS: CLARITY URINE TURBID (CLEAR); COLOR URINE ORANGE (YELLOW); KETONES URINE 1+ (NEGATIVE); LEUKOCYTE ESTERASE URINE 2+ (NEGATIVE); NITRITE URINE POSITIVE (NEGATIVE); OCCULT BLOOD URINE 2+ (NEGATIVE); PROTEIN URINE 2+ (NEGATIVE); SPECIFIC GRAVITY URINE 1.035 (1.005-1.030)
[2020-04-12] MEDS: ACETAMINOPHEN 325MG TABLET PO PRN ×2 (15:19→23:52)
[2020-04-12] MEDS: ATORVASTATIN CALCIUM 40MG TABLET PO SCH (20:55)
[2020-04-12] MEDS: LINAGLIPTIN 5MG TABLET PO SCH (23:41)
[2020-04-13] VITALS (12 sets, daily range): BP systolic 97–158; BP diastolic 55–81
[2020-04-13 06:00] LABS: CHLORIDE 104 mEq/L (98-107)
[2020-04-13] MEDS: GABAPENTIN 100MG CAPSULE PO SCH ×3 (06:05→21:37)
[2020-04-13] MEDS: BLOOD SUGAR DIAGNOSTIC STRIP TEST SCH ×4 (06:06→20:36)
[2020-04-13 06:33] LABS: BASOPHILS % 0.3 % (0.0-2.0); EOSINOPHILS % 0.4 % (0.0-5.0); HEMATOCRIT. 38.6 % (42.0-52.0); HEMOGLOBIN. 12.8 g/dL (14.0-18.0); LYMPHOCYTES % 12.3 % (20.0-50.0); MEAN CORPUSCULAR HEMOGLOBIN 29.7 pg (28.0-32.0); MEAN CORPUSCULAR VOLUME 89.3 fL (80.0-94.0); MEAN PLATELET VOLUME 9.8 fl (7.4-10.4); PLATELET 159 x1000/uL (130-400); RED BLOOD CELL COUNT 4.32 mill/uL (4.7-6.1); RED CELL DISTRIBUTION WIDTH 14.5 % (11.6-14.6)
[2020-04-13] MEDS: INSULIN LISPRO 100 UNITS/ML SUBCUT SCH ×7 (07:37→20:39)
[2020-04-13] MEDS: ASPIRIN 325MG TABLET PO SCH (09:01)
[2020-04-13] MEDS: LINAGLIPTIN 5MG TABLET PO SCH (09:02)
[2020-04-13] MEDS: TAMSULOSIN HCL 0.4MG SR CAPSULE PO SCH (09:02)
[2020-04-13] MEDS: METOPROLOL TARTRATE 25MG TABLET PO SCH ×2 (09:02→20:36)
[2020-04-13] MEDS: CLOPIDOGREL 75MG TABLET PO SCH (09:02)
[2020-04-13] MEDS ORDERED: ASPIRIN 81MG TABLET PO SCH (10:00)
[2020-04-13] MEDS: CEFTRIAXONE 1,000 MG in DEXTROSE 5% WATER 50 ML IV SCH (10:47)
[2020-04-13] MEDS: INSULIN GLARGINE UD 100 UNITS/ML SYR SUBCUT SCH (10:48)
[2020-04-13] MEDS: ATORVASTATIN CALCIUM 40MG TABLET PO SCH (20:36)
[2020-04-13] MEDS ORDERED: INSULIN GLARGINE UD 100 UNITS/ML SYR SUBCUT SCH ×2 (22:00)
[2020-04-14] VITALS (8 sets, daily range): BP systolic 113–144; BP diastolic 54–74
[2020-04-14] MEDS: BLOOD SUGAR DIAGNOSTIC STRIP TEST SCH ×2 (06:11→11:32)
[2020-04-14] MEDS: GABAPENTIN 100MG CAPSULE PO SCH ×2 (06:11→14:00)
[2020-04-14 06:16] LABS: CHLORIDE 105 mEq/L (98-107)
[2020-04-14 06:20] LABS: BASOPHILS % 0.4 % (0.0-2.0); EOSINOPHILS % 0.8 % (0.0-5.0); HEMOGLOBIN. 12.5 g/dL (14.0-18.0); MEAN CORPUSCULAR HEMOGLOBIN 29.9 pg (28.0-32.0); MEAN CORPUSCULAR VOLUME 88.6 fL (80.0-94.0); MEAN PLATELET VOLUME 9.7 fl (7.4-10.4); MONOCYTES % 11.1 % (2.0-8.0); NEUTROPHILS % 73.7 % (40.0-76.0); PLATELET 163 x1000/uL (130-400); RED BLOOD CELL COUNT 4.18 mill/uL (4.7-6.1); RED CELL DISTRIBUTION WIDTH 14.5 % (11.6-14.6)
[2020-04-14] MEDS: INSULIN LISPRO 100 UNITS/ML SUBCUT SCH ×4 (08:25→11:32)
[2020-04-14] MEDS: CEFTRIAXONE 1,000 MG in DEXTROSE 5% WATER 50 ML IV SCH (08:35)
[2020-04-14] MEDS: CLOPIDOGREL 75MG TABLET PO SCH (08:38)
[2020-04-14] MEDS: LINAGLIPTIN 5MG TABLET PO SCH (08:39)
[2020-04-14] MEDS: TAMSULOSIN HCL 0.4MG SR CAPSULE PO SCH (08:48)
[2020-04-14] MEDS: METOPROLOL TARTRATE 25MG TABLET PO SCH (08:49)
[2020-04-14] MEDS ORDERED: ASPIRIN 81MG TABLET PO SCH (09:00)
[2020-04-14] MEDS: INSULIN GLARGINE UD 100 UNITS/ML SYR SUBCUT SCH (11:29)
== END 2020-04-14 15:00 | disposition home or self-care (01) | DRG 251 ==
LOC: CCL 06:23 → 3WST 06:24
PROVIDERS: ADMIT Specialist; ATTEND Specialist
PROC: 02703ZZ Dilation of Coronary Artery, One Artery, Percutaneous Approach (ICD-10-PCS; principal; 2020-04-11)
PROC: 4A023N7 Measurement of Cardiac Sampling and Pressure, Left Heart, Percutaneous Approach (ICD-10-PCS; 2020-04-11)
PROC: B2131ZZ Fluoroscopy of Multiple Coronary Artery Bypass Grafts using Low Osmolar Contrast (ICD-10-PCS; 2020-04-11)
PROC: B2111ZZ Fluoroscopy of Multiple Coronary Arteries using Low Osmolar Contrast (ICD-10-PCS; 2020-04-11)
DX: T82.855A Stenosis of coronary artery stent, initial encounter (principal); N39.0 Urinary tract infection, site not specified; I69.354 Hemiplegia and hemiparesis following cerebral infarction affecting left non-dominant side; I25.10 Atherosclerotic heart disease of native coronary artery without angina pectoris; E66.01 Morbid (severe) obesity due to excess calories; E78.5 Hyperlipidemia, unspecified; G47.30 Sleep apnea, unspecified; I73.9 Peripheral vascular disease, unspecified; G62.9 Polyneuropathy, unspecified; N40.0 Benign prostatic hyperplasia without lower urinary tract symptoms; E11.65 Type 2 diabetes mellitus with hyperglycemia; L97.529 Non-pressure chronic ulcer of other part of left foot with unspecified severity; R31.0 Gross hematuria; Y83.1 Surgical operation with implant of artificial internal device as the cause of abnormal reaction of the patient, or of later complication, without mention of misadventure at the time of the procedure; E11.42 Type 2 diabetes mellitus with diabetic polyneuropathy; E11.51 Type 2 diabetes mellitus with diabetic peripheral angiopathy without gangrene; I11.9 Hypertensive heart disease without heart failure; E11.621 Type 2 diabetes mellitus with foot ulcer; R31.9 Hematuria, unspecified; E78.00 Pure hypercholesterolemia, unspecified; Z87.891 Personal history of nicotine dependence; Z95.1 Presence of aortocoronary bypass graft; Z68.35 Body mass index [BMI] 35.0-35.9, adult; Z98.62 Peripheral vascular angioplasty status; B96.20 Unspecified Escherichia coli [E. coli] as the cause of diseases classified elsewhere
CPT/HCPCS: 36415; 80048; 81003; 82962; 83036; 83735; 85025; 85347; 87077; 87186; 87635; 92920; 93005; 93454; 97116; 97162; 97166; 97530; C1760; C1769; C1887; C1893; J0696; J1644; J1815; J2250; J3010; J3490; J7060; Q9967

== ENCOUNTER 2020-04-26 20:50 | Inpatient (IN) | payer MEDICARE, MEDICAID ==
[~2020-04-26] VITALS: Ht 167.6 cm; Wt 102.5 kg
[2020-04-26 20:00] VITALS: BP 124/79
[~2020-04-26 20:50] MED LIST changes: -ACAR25TA2 PO; -PRAS10TA6 PO
[2020-04-26 21:00] VITALS: BP 124/79
[2020-04-26] MEDS ORDERED: CLONIDINE 0.1MG TABLET PO PRN (22:45)
[2020-04-26] MEDS ORDERED: ACETAMINOPHEN 325MG TABLET PO PRN (22:45)
[2020-04-26] MEDS ORDERED: DEXTROSE 50% WATER 50ML SYRINGE IV PRN ×5 (22:45)
[2020-04-27] MEDS: GABAPENTIN 300MG CAPSULE PO SCH ×3 (05:52→21:58)
[2020-04-27] MEDS ORDERED: BLOOD SUGAR DIAGNOSTIC STRIP TEST SCH ×3 (06:30)
[2020-04-27] MEDS: BLOOD SUGAR DIAGNOSTIC STRIP TEST SCH ×4 (06:38→21:00)
[2020-04-27 07:03] LABS: BASOPHILS % 0.6 % (0.0-2.0); EOSINOPHILS % 1.8 % (0.0-5.0); HEMATOCRIT. 41.5 % (42.0-52.0); HEMOGLOBIN. 13.6 g/dL (14.0-18.0); LYMPHOCYTES % 23.3 % (20.0-50.0); MEAN CORPUSCULAR VOLUME 88.8 fL (80.0-94.0); MEAN PLATELET VOLUME 9.3 fl (7.4-10.4); MONOCYTES % 7.5 % (2.0-8.0); NEUTROPHILS % 66.8 % (40.0-76.0); PLATELET 262 x1000/uL (130-400); RED BLOOD CELL COUNT 4.68 mill/uL (4.7-6.1); RED CELL DISTRIBUTION WIDTH 14.7 % (11.6-14.6)
[2020-04-27] MEDS: INSULIN LISPRO (LOW DOSE) 100 UNITS/ML SUBCUT SCH ×4 (07:20→21:00)
[2020-04-27] MEDS: INSULIN LISPRO 100 UNITS/ML SUBCUT SCH ×3 (07:20→17:41)
[2020-04-27 07:35] LABS: CHLORIDE 106 mEq/L (98-107)
[2020-04-27 08:00] VITALS: BP 135/73
[2020-04-27] MEDS ORDERED: ENOXAPARIN 40MG/0.4ML SYR SUBCUT SCH (09:00)
[2020-04-27] MEDS: DOCUSATE SODIUM 100MG CAPSULE PO SCH ×3 (09:32→17:39)
[2020-04-27] MEDS: CLOPIDOGREL 75MG TABLET PO SCH (09:32)
[2020-04-27] MEDS: METOPROLOL TARTRATE 25MG TABLET PO SCH (09:33)
[2020-04-27] MEDS: TAMSULOSIN HCL 0.4MG SR CAPSULE PO SCH (09:33)
[2020-04-27] MEDS: RANOLAZINE 500 MG TAB.SR.12H PO SCH ×2 (09:34→17:39)
[2020-04-27] MEDS: ASPIRIN 81MG TABLET PO SCH (09:34)
[2020-04-27] MEDS: DAPAGLIFLOZIN 10 MG PO SCH (09:40)
[2020-04-27 16:28] LABS: CLARITY URINE CLEAR (CLEAR); COLOR URINE YELLOW (YELLOW); KETONES URINE NEGATIVE (NEGATIVE); LEUKOCYTE ESTERASE URINE NEGATIVE (NEGATIVE); NITRITE URINE NEGATIVE (NEGATIVE); OCCULT BLOOD URINE NEGATIVE (NEGATIVE); PH URINE 5.5 (4.5-8.0); PROTEIN URINE NEGATIVE (NEGATIVE); SPECIFIC GRAVITY URINE 1.039 (1.005-1.030); UROBILINOGEN URINE 0.2 E.U./dL (0.2-1.0)
[2020-04-27 20:00] VITALS: BP 128/76
[2020-04-27] MEDS: ENOXAPARIN 30MG/0.3ML SYR SUBCUT SCH (22:11)
[2020-04-27] MEDS: INSULIN GLARGINE UD 100 UNITS/ML SYR SUBCUT SCH (22:15)
[2020-04-27 22:21] LABS: T4 FREE 1.25 ng/dL (0.76-1.46)
[2020-04-28] MEDS: GABAPENTIN 300MG CAPSULE PO SCH ×3 (06:24→21:58)
[2020-04-28] MEDS: BLOOD SUGAR DIAGNOSTIC STRIP TEST SCH ×4 (06:24→21:00)
[2020-04-28] MEDS: INSULIN LISPRO 100 UNITS/ML SUBCUT SCH ×3 (07:00→17:00)
[2020-04-28 08:36] VITALS: BP 144/87
[2020-04-28] MEDS: ASPIRIN 81MG TABLET PO SCH (09:00)
[2020-04-28] MEDS: ENOXAPARIN 30MG/0.3ML SYR SUBCUT SCH ×2 (09:00→21:58)
[2020-04-28 09:01] LABS: BASOPHILS % 0.6 % (0.0-2.0); EOSINOPHILS % 1.9 % (0.0-5.0); HEMATOCRIT. 42.1 % (42.0-52.0); HEMOGLOBIN. 13.9 g/dL (14.0-18.0); LYMPHOCYTES % 23.7 % (20.0-50.0); MEAN CORPUSCULAR HEMOGLOBIN 29.6 pg (28.0-32.0); MEAN CORPUSCULAR VOLUME 89.4 fL (80.0-94.0); MEAN PLATELET VOLUME 9.4 fl (7.4-10.4); MONOCYTES % 7.3 % (2.0-8.0); NEUTROPHILS % 66.5 % (40.0-76.0); PLATELET 255 x1000/uL (130-400); RED BLOOD CELL COUNT 4.71 mill/uL (4.7-6.1)
[2020-04-28] MEDS: TAMSULOSIN HCL 0.4MG SR CAPSULE PO SCH (09:01)
[2020-04-28] MEDS: CLOPIDOGREL 75MG TABLET PO SCH (09:01)
[2020-04-28] MEDS: METOPROLOL TARTRATE 25MG TABLET PO SCH (09:01)
[2020-04-28] MEDS: RANOLAZINE 500 MG TAB.SR.12H PO SCH ×2 (09:01→16:59)
[2020-04-28] MEDS: DOCUSATE SODIUM 100MG CAPSULE PO SCH ×3 (09:01→16:59)
[2020-04-28] MEDS: DAPAGLIFLOZIN 10 MG PO SCH (09:06)
[2020-04-28] MEDS: INSULIN LISPRO (LOW DOSE) 100 UNITS/ML SUBCUT SCH ×4 (09:07→22:02)
[2020-04-28 09:17] LABS: CHLORIDE 106 mEq/L (98-107)
[2020-04-28 09:23] LABS: TOTAL IRON BINDING CAPACITY 327 ug/dL (250-450)
[2020-04-28 09:24] LABS: PHOSPHORUS 3.8 mg/dL (2.5-4.9)
[2020-04-28 09:27] LABS: FOLIC ACID (FOLATE) SERUM 14.4 ng/mL (>5.38)
[2020-04-28 13:25] LABS: PROSTRATE SPECIFIC AG TOTAL 3.09 ng/mL (0.0-4.0)
[2020-04-28 20:00] VITALS: BP 140/78
[2020-04-28] MEDS: INSULIN GLARGINE UD 100 UNITS/ML SYR SUBCUT SCH (22:33)
[2020-04-29] MEDS: GABAPENTIN 300MG CAPSULE PO SCH ×3 (05:37→21:58)
[2020-04-29] MEDS: BLOOD SUGAR DIAGNOSTIC STRIP TEST SCH ×4 (05:37→21:00)
[2020-04-29 08:02] VITALS: BP 148/82
[2020-04-29] MEDS: INSULIN LISPRO (LOW DOSE) 100 UNITS/ML SUBCUT SCH (09:00)
[2020-04-29] MEDS: ASPIRIN 81MG TABLET PO SCH (09:34)
[2020-04-29] MEDS: RANOLAZINE 500 MG TAB.SR.12H PO SCH ×2 (09:35→17:18)
[2020-04-29] MEDS: METOPROLOL TARTRATE 25MG TABLET PO SCH (09:35)
[2020-04-29] MEDS: TAMSULOSIN HCL 0.4MG SR CAPSULE PO SCH (09:35)
[2020-04-29] MEDS: DOCUSATE SODIUM 100MG CAPSULE PO SCH ×3 (09:35→17:18)
[2020-04-29] MEDS: CLOPIDOGREL 75MG TABLET PO SCH (09:35)
[2020-04-29] MEDS: DAPAGLIFLOZIN 10 MG PO SCH (09:36)
[2020-04-29] MEDS: ENOXAPARIN 30MG/0.3ML SYR SUBCUT SCH ×2 (09:36→20:49)
[2020-04-29] MEDS: INSULIN LISPRO 100 UNITS/ML SUBCUT SCH ×5 (09:38→17:00)
[2020-04-29 20:00] VITALS: BP 126/67
[2020-04-29] MEDS: INSULIN GLARGINE UD 100 UNITS/ML SYR SUBCUT SCH (21:59)
[2020-04-30] MEDS: BLOOD SUGAR DIAGNOSTIC STRIP TEST SCH ×4 (06:06→21:24)
[2020-04-30] MEDS: GABAPENTIN 300MG CAPSULE PO SCH ×3 (06:06→22:15)
[2020-04-30] MEDS: INSULIN LISPRO 100 UNITS/ML SUBCUT SCH ×7 (06:07→17:51)
[2020-04-30 08:40] VITALS: BP 116/80
[2020-04-30] MEDS: ASPIRIN 81MG TABLET PO SCH (08:44)
[2020-04-30] MEDS: RANOLAZINE 500 MG TAB.SR.12H PO SCH ×2 (08:44→17:18)
[2020-04-30] MEDS: DAPAGLIFLOZIN 10 MG PO SCH (08:45)
[2020-04-30] MEDS: DOCUSATE SODIUM 100MG CAPSULE PO SCH ×3 (08:47→17:18)
[2020-04-30] MEDS: CLOPIDOGREL 75MG TABLET PO SCH (08:47)
[2020-04-30] MEDS: TAMSULOSIN HCL 0.4MG SR CAPSULE PO SCH (08:47)
[2020-04-30] MEDS: METOPROLOL TARTRATE 25MG TABLET PO SCH (08:49)
[2020-04-30] MEDS: ENOXAPARIN 30MG/0.3ML SYR SUBCUT SCH ×2 (09:03→22:15)
[2020-04-30 20:00] VITALS: BP 166/84
[2020-04-30 21:00] VITALS: BP 138/67
[2020-04-30] MEDS: INSULIN GLARGINE UD 100 UNITS/ML SYR SUBCUT SCH (22:20)
[2020-05-01] MEDS: BLOOD SUGAR DIAGNOSTIC STRIP TEST SCH ×4 (05:49→20:39)
[2020-05-01] MEDS: INSULIN LISPRO 100 UNITS/ML SUBCUT SCH ×6 (05:50→17:19)
[2020-05-01] MEDS: GABAPENTIN 300MG CAPSULE PO SCH ×3 (05:51→21:30)
[2020-05-01 07:08] LABS: BASOPHILS % 0.9 % (0.0-2.0); HEMATOCRIT. 39.7 % (42.0-52.0); HEMOGLOBIN. 12.9 g/dL (14.0-18.0); LYMPHOCYTES % 28.6 % (20.0-50.0); MEAN CORPUSCULAR HEMOGLOBIN 29.1 pg (28.0-32.0); MEAN CORPUSCULAR VOLUME 89.4 fL (80.0-94.0); MEAN PLATELET VOLUME 9.3 fl (7.4-10.4); MONOCYTES % 10.9 % (2.0-8.0); NEUTROPHILS % 57.6 % (40.0-76.0); PLATELET 212 x1000/uL (130-400); RED BLOOD CELL COUNT 4.44 mill/uL (4.7-6.1); RED CELL DISTRIBUTION WIDTH 14.8 % (11.6-14.6)
[2020-05-01 07:18] LABS: CHLORIDE 108 mEq/L (98-107)
[2020-05-01 07:30] VITALS: BP 155/82
[2020-05-01] MEDS: DAPAGLIFLOZIN 10 MG PO SCH (08:01)
[2020-05-01] MEDS: RANOLAZINE 500 MG TAB.SR.12H PO SCH ×2 (08:28→16:31)
[2020-05-01] MEDS: DOCUSATE SODIUM 100MG CAPSULE PO SCH ×3 (08:28→16:31)
[2020-05-01] MEDS: CLOPIDOGREL 75MG TABLET PO SCH (08:28)
[2020-05-01] MEDS: ASPIRIN 81MG TABLET PO SCH (08:28)
[2020-05-01] MEDS: TAMSULOSIN HCL 0.4MG SR CAPSULE PO SCH (08:29)
[2020-05-01] MEDS: ENOXAPARIN 30MG/0.3ML SYR SUBCUT SCH ×2 (08:29→21:31)
[2020-05-01] MEDS: METOPROLOL TARTRATE 25MG TABLET PO SCH (08:29)
[2020-05-01 20:00] VITALS: BP 128/72
[2020-05-01] MEDS: INSULIN GLARGINE UD 100 UNITS/ML SYR SUBCUT SCH (21:44)
[2020-05-02 04:11] LABS: 25-HYDROXY VITAMIN D3 35 ng/mL (.)
[2020-05-02] MEDS: BLOOD SUGAR DIAGNOSTIC STRIP TEST SCH ×4 (06:09→22:30)
[2020-05-02] MEDS: GABAPENTIN 300MG CAPSULE PO SCH ×3 (06:09→22:49)
[2020-05-02] MEDS: INSULIN LISPRO 100 UNITS/ML SUBCUT SCH ×6 (07:00→17:55)
[2020-05-02 07:30] VITALS: BP 116/74
[2020-05-02] MEDS: CLOPIDOGREL 75MG TABLET PO SCH (08:02)
[2020-05-02] MEDS: DOCUSATE SODIUM 100MG CAPSULE PO SCH ×3 (08:02→17:08)
[2020-05-02] MEDS: DAPAGLIFLOZIN 10 MG PO SCH (08:02)
[2020-05-02] MEDS: RANOLAZINE 500 MG TAB.SR.12H PO SCH ×2 (08:02→17:08)
[2020-05-02] MEDS: ENOXAPARIN 30MG/0.3ML SYR SUBCUT SCH ×2 (08:02→22:49)
[2020-05-02] MEDS: ASPIRIN 81MG TABLET PO SCH (08:02)
[2020-05-02] MEDS: TAMSULOSIN HCL 0.4MG SR CAPSULE PO SCH (08:05)
[2020-05-02] MEDS: METOPROLOL TARTRATE 25MG TABLET PO SCH (08:06)
[2020-05-02 10:38] VITALS: BP_SYST 100; BP_SYST 136; BP_SYST 70; BP_DIAS 38; BP_DIAS 60; BP_DIAS 80
[2020-05-02] MEDS ORDERED: SODIUM CHLORIDE 0.9% 500 ML IV ONE (14:30)
[2020-05-02] MEDS: FLUDROCORTISONE ACETATE 0.1MG TABLET PO SCH (15:26)
[2020-05-02] MEDS ORDERED: ERGOCALCIFEROL 50000UNITS CAPSULE PO SCH (16:45)
[2020-05-02 20:00] VITALS: BP 136/71
[2020-05-02 21:00] VITALS: BP_SYST 105; BP_SYST 139; BP_SYST 91; BP_DIAS 50; BP_DIAS 65; BP_DIAS 66
[2020-05-02] MEDS: INSULIN GLARGINE UD 100 UNITS/ML SYR SUBCUT SCH (22:00)
[2020-05-03] MEDS: GABAPENTIN 300MG CAPSULE PO SCH ×3 (06:54→21:46)
[2020-05-03] MEDS: INSULIN LISPRO 100 UNITS/ML SUBCUT SCH ×6 (06:58→16:37)
[2020-05-03] MEDS: BLOOD SUGAR DIAGNOSTIC STRIP TEST SCH ×4 (06:58→21:48)
[2020-05-03 08:25] VITALS: BP 128/82
[2020-05-03] MEDS: TAMSULOSIN HCL 0.4MG SR CAPSULE PO SCH (08:44)
[2020-05-03] MEDS: DOCUSATE SODIUM 100MG CAPSULE PO SCH ×3 (08:44→16:11)
[2020-05-03] MEDS: ASPIRIN 81MG TABLET PO SCH (08:44)
[2020-05-03] MEDS: RANOLAZINE 500 MG TAB.SR.12H PO SCH ×2 (08:44→16:11)
[2020-05-03] MEDS: CLOPIDOGREL 75MG TABLET PO SCH (08:45)
[2020-05-03] MEDS: METOPROLOL TARTRATE 25MG TABLET PO SCH (08:45)
[2020-05-03] MEDS: DAPAGLIFLOZIN 10 MG PO SCH (08:45)
[2020-05-03] MEDS: FLUDROCORTISONE ACETATE 0.1MG TABLET PO SCH (08:45)
[2020-05-03] MEDS: ENOXAPARIN 30MG/0.3ML SYR SUBCUT SCH ×2 (08:45→21:48)
[2020-05-03 20:00] VITALS: BP 156/77
[2020-05-03] MEDS: INSULIN GLARGINE UD 100 UNITS/ML SYR SUBCUT SCH (21:53)
[2020-05-04 06:22] LABS: BASOPHILS % 0.6 % (0.0-2.0); EOSINOPHILS % 2.3 % (0.0-5.0); HEMATOCRIT. 39.2 % (42.0-52.0); HEMOGLOBIN. 12.9 g/dL (14.0-18.0); LYMPHOCYTES % 25.9 % (20.0-50.0); MEAN CORPUSCULAR HEMOGLOBIN 29.4 pg (28.0-32.0); MEAN PLATELET VOLUME 9.9 fl (7.4-10.4); MONOCYTES % 11.7 % (2.0-8.0); NEUTROPHILS % 59.5 % (40.0-76.0); PLATELET 179 x1000/uL (130-400)
[2020-05-04 06:31] LABS: CHLORIDE 107 mEq/L (98-107)
[2020-05-04] MEDS: GABAPENTIN 300MG CAPSULE PO SCH ×3 (06:39→21:40)
[2020-05-04] MEDS: BLOOD SUGAR DIAGNOSTIC STRIP TEST SCH ×4 (06:39→21:00)
[2020-05-04] MEDS: INSULIN LISPRO 100 UNITS/ML SUBCUT SCH ×6 (07:00→17:51)
[2020-05-04 08:00] VITALS: BP_SYST 111; BP_SYST 115; BP_SYST 89; BP_DIAS 43; BP_DIAS 67; BP_DIAS 77
[2020-05-04] MEDS: METOPROLOL TARTRATE 25MG TABLET PO SCH (09:00)
[2020-05-04] MEDS: DOCUSATE SODIUM 100MG CAPSULE PO SCH ×3 (09:02→17:47)
[2020-05-04] MEDS: CLOPIDOGREL 75MG TABLET PO SCH (09:02)
[2020-05-04] MEDS: FLUDROCORTISONE ACETATE 0.1MG TABLET PO SCH (09:02)
[2020-05-04] MEDS: ASPIRIN 81MG TABLET PO SCH (09:02)
[2020-05-04] MEDS: RANOLAZINE 500 MG TAB.SR.12H PO SCH ×2 (09:03→17:47)
[2020-05-04] MEDS: TAMSULOSIN HCL 0.4MG SR CAPSULE PO SCH (09:04)
[2020-05-04] MEDS: ENOXAPARIN 30MG/0.3ML SYR SUBCUT SCH ×2 (09:06→21:30)
[2020-05-04] MEDS: DAPAGLIFLOZIN 10 MG PO SCH (09:08)
[2020-05-04] MEDS: NEOMY SULF/BACITRAC ZN/POLY OINT 28GM TOP SCH (09:09)
[2020-05-04] MEDS ORDERED: LACTULOSE 20G/30ML UDC PO ONE (17:45)
[2020-05-04] MEDS: LACTULOSE 20G/30ML UDC PO SCH (18:00)
[2020-05-04 20:00] VITALS: BP 117/76
[2020-05-04] MEDS: INSULIN GLARGINE UD 100 UNITS/ML SYR SUBCUT SCH (21:43)
[2020-05-04] MEDS ORDERED: LACTULOSE 20G/30ML UDC PO SCH (21:45)
[2020-05-05] MEDS: INSULIN LISPRO 100 UNITS/ML SUBCUT SCH ×6 (05:49→18:11)
[2020-05-05] MEDS: BLOOD SUGAR DIAGNOSTIC STRIP TEST SCH ×4 (05:49→21:00)
[2020-05-05] MEDS: GABAPENTIN 300MG CAPSULE PO SCH ×3 (05:52→22:14)
[2020-05-05 08:00] VITALS: BP_SYST 156; BP_SYST 76; BP_SYST 95; BP_DIAS 50; BP_DIAS 61; BP_DIAS 80
[2020-05-05] MEDS: DOCUSATE SODIUM 100MG CAPSULE PO SCH ×3 (08:45→18:06)
[2020-05-05] MEDS: CLOPIDOGREL 75MG TABLET PO SCH (08:45)
[2020-05-05] MEDS: DAPAGLIFLOZIN 10 MG PO SCH (08:45)
[2020-05-05] MEDS: FLUDROCORTISONE ACETATE 0.1MG TABLET PO SCH ×2 (08:45→18:06)
[2020-05-05] MEDS: ASPIRIN 81MG TABLET PO SCH (08:45)
[2020-05-05] MEDS: RANOLAZINE 500 MG TAB.SR.12H PO SCH ×2 (08:46→18:06)
[2020-05-05] MEDS: LACTULOSE 20G/30ML UDC PO SCH ×3 (08:47→17:00)
[2020-05-05] MEDS: METOPROLOL TARTRATE 25MG TABLET PO SCH (08:48)
[2020-05-05] MEDS: TAMSULOSIN HCL 0.4MG SR CAPSULE PO SCH (08:48)
[2020-05-05] MEDS: ENOXAPARIN 30MG/0.3ML SYR SUBCUT SCH ×2 (08:49→22:14)
[2020-05-05] MEDS: NEOMY SULF/BACITRAC ZN/POLY OINT 28GM TOP SCH (08:49)
[2020-05-05] MEDS ORDERED: SODIUM CHLORIDE 0.9% 250 ML IV ONE (09:15)
[2020-05-05 20:00] VITALS: BP 145/76
[2020-05-05] MEDS: INSULIN GLARGINE UD 100 UNITS/ML SYR SUBCUT SCH (22:15)
[2020-05-06] MEDS: GABAPENTIN 300MG CAPSULE PO SCH ×3 (06:15→21:37)
[2020-05-06] MEDS: BLOOD SUGAR DIAGNOSTIC STRIP TEST SCH ×4 (06:16→21:36)
[2020-05-06] MEDS: INSULIN LISPRO 100 UNITS/ML SUBCUT SCH ×6 (06:17→17:00)
[2020-05-06 06:30] VITALS: BP_SYST 105; BP_SYST 116; BP_SYST 138; BP_DIAS 58; BP_DIAS 66; BP_DIAS 81
[2020-05-06 08:00] VITALS: BP 156/70
[2020-05-06] MEDS: LACTULOSE 20G/30ML UDC PO SCH ×3 (08:30→16:21)
[2020-05-06] MEDS: ENOXAPARIN 30MG/0.3ML SYR SUBCUT SCH ×2 (08:59→21:36)
[2020-05-06] MEDS: RANOLAZINE 500 MG TAB.SR.12H PO SCH ×2 (08:59→16:21)
[2020-05-06] MEDS: ASPIRIN 81MG TABLET PO SCH (08:59)
[2020-05-06] MEDS: DOCUSATE SODIUM 100MG CAPSULE PO SCH ×3 (08:59→16:21)
[2020-05-06] MEDS: CLOPIDOGREL 75MG TABLET PO SCH (08:59)
[2020-05-06] MEDS: TAMSULOSIN HCL 0.4MG SR CAPSULE PO SCH (09:00)
[2020-05-06] MEDS: FLUDROCORTISONE ACETATE 0.1MG TABLET PO SCH ×2 (09:00→16:21)
[2020-05-06] MEDS: METOPROLOL TARTRATE 25MG TABLET PO SCH (09:00)
[2020-05-06] MEDS: DAPAGLIFLOZIN 10 MG PO SCH (09:01)
[2020-05-06] MEDS: NEOMY SULF/BACITRAC ZN/POLY OINT 28GM TOP SCH (09:01)
[2020-05-06 20:00] VITALS: BP 153/79
[2020-05-06] MEDS: INSULIN GLARGINE UD 100 UNITS/ML SYR SUBCUT SCH (21:47)
[2020-05-07] MEDS: GABAPENTIN 300MG CAPSULE PO SCH ×3 (05:47→21:57)
[2020-05-07] MEDS: BLOOD SUGAR DIAGNOSTIC STRIP TEST SCH ×4 (05:47→21:00)
[2020-05-07] MEDS: INSULIN LISPRO 100 UNITS/ML SUBCUT SCH ×6 (06:01→17:05)
[2020-05-07 08:00] VITALS: BP 132/63
[2020-05-07] MEDS: LACTULOSE 20G/30ML UDC PO SCH (09:00)
[2020-05-07] MEDS: FLUDROCORTISONE ACETATE 0.1MG TABLET PO SCH ×2 (09:16→16:58)
[2020-05-07] MEDS: DOCUSATE SODIUM 100MG CAPSULE PO SCH ×3 (09:16→16:58)
[2020-05-07] MEDS: METOPROLOL TARTRATE 25MG TABLET PO SCH (09:16)
[2020-05-07] MEDS: TAMSULOSIN HCL 0.4MG SR CAPSULE PO SCH (09:16)
[2020-05-07] MEDS: RANOLAZINE 500 MG TAB.SR.12H PO SCH ×2 (09:16→16:58)
[2020-05-07] MEDS: ENOXAPARIN 30MG/0.3ML SYR SUBCUT SCH ×2 (09:16→21:58)
[2020-05-07] MEDS: ASPIRIN 81MG TABLET PO SCH (09:16)
[2020-05-07] MEDS: NEOMY SULF/BACITRAC ZN/POLY OINT 28GM TOP SCH (09:17)
[2020-05-07] MEDS: CLOPIDOGREL 75MG TABLET PO SCH (09:17)
[2020-05-07] MEDS: DAPAGLIFLOZIN 10 MG PO SCH (09:17)
[2020-05-07 20:00] VITALS: BP_SYST 122; BP_SYST 131; BP_SYST 170; BP_DIAS 65; BP_DIAS 72; BP_DIAS 85
[2020-05-07] MEDS: INSULIN GLARGINE UD 100 UNITS/ML SYR SUBCUT SCH (22:29)
[2020-05-08] MEDS: INSULIN LISPRO 100 UNITS/ML SUBCUT SCH ×4 (06:26→12:46)
[2020-05-08] MEDS: BLOOD SUGAR DIAGNOSTIC STRIP TEST SCH ×2 (06:29→11:15)
[2020-05-08] MEDS: GABAPENTIN 300MG CAPSULE PO SCH ×2 (06:30→12:42)
[2020-05-08 08:30] VITALS: BP 122/83
[2020-05-08] MEDS: METOPROLOL TARTRATE 25MG TABLET PO SCH (09:49)
[2020-05-08] MEDS: ASPIRIN 81MG TABLET PO SCH (09:49)
[2020-05-08] MEDS: DOCUSATE SODIUM 100MG CAPSULE PO SCH ×2 (09:49→12:42)
[2020-05-08] MEDS: DAPAGLIFLOZIN 10 MG PO SCH (09:49)
[2020-05-08] MEDS: ENOXAPARIN 30MG/0.3ML SYR SUBCUT SCH (09:49)
[2020-05-08] MEDS: FLUDROCORTISONE ACETATE 0.1MG TABLET PO SCH (09:50)
[2020-05-08] MEDS: RANOLAZINE 500 MG TAB.SR.12H PO SCH (09:50)
[2020-05-08] MEDS: NEOMY SULF/BACITRAC ZN/POLY OINT 28GM TOP SCH (09:50)
[2020-05-08] MEDS: CLOPIDOGREL 75MG TABLET PO SCH (09:50)
[2020-05-08] MEDS: TAMSULOSIN HCL 0.4MG SR CAPSULE PO SCH (09:50)
[2020-05-08 13:24] VITALS: BP 122/83
[2020-05-10 04:11] LABS: RENIN ACTIVITY PLASMA 1.361 ng/mL/hr (0.167-5.380)
== END 2020-05-08 15:00 | disposition home or self-care (01) | DRG 92 ==
PROVIDERS: ADMIT Physical Medicine & Rehabilitation Spinal Cord Injury Medicine; ATTEND Specialist
DX: G92 Toxic encephalopathy (principal); G45.9 Transient cerebral ischemic attack, unspecified; I69.354 Hemiplegia and hemiparesis following cerebral infarction affecting left non-dominant side; N39.0 Urinary tract infection, site not specified; R53.81 Other malaise; I25.10 Atherosclerotic heart disease of native coronary artery without angina pectoris; I95.9 Hypotension, unspecified; Z95.1 Presence of aortocoronary bypass graft; E66.01 Morbid (severe) obesity due to excess calories; E78.00 Pure hypercholesterolemia, unspecified; E78.5 Hyperlipidemia, unspecified; G47.33 Obstructive sleep apnea (adult) (pediatric); I11.9 Hypertensive heart disease without heart failure; I25.2 Old myocardial infarction; I25.82 Chronic total occlusion of coronary artery; E11.42 Type 2 diabetes mellitus with diabetic polyneuropathy; N40.0 Benign prostatic hyperplasia without lower urinary tract symptoms; Z95.5 Presence of coronary angioplasty implant and graft; Z91.81 History of falling; E11.51 Type 2 diabetes mellitus with diabetic peripheral angiopathy without gangrene
CPT/HCPCS: 36415; 70551; 80048; 80053; 81003; 82024; 82088; 82140; 82306; 82533; 82607; 82728; 82746; 82962; 83036; 83540; 83550; 83735; 84100; 84134; 84153; 84244; 84439; 84443; 84481; 85025; 92523; 92610; 93005; 93970; 97110; 97112; 97116; 97140; 97162; 97166; 97530; 97535; J1650; J1815; G0103

== ENCOUNTER 2020-06-22 10:31 | Inpatient (IN) | payer MEDICARE, MEDICAID ==
[~2020-06-22] VITALS: Ht 170.2 cm; Wt 99.8 kg
[2020-06-22 12:00] LABS: BASOPHILS % 0.8 % (0.0-2.0); EOSINOPHILS % 2.1 % (0.0-5.0); HEMATOCRIT. 41.8 % (42.0-52.0); HEMOGLOBIN. 13.7 g/dL (14.0-18.0); LYMPHOCYTES % 21.5 % (20.0-50.0); MEAN CORPUSCULAR HEMOGLOBIN 28.4 pg (28.0-32.0); MEAN CORPUSCULAR VOLUME 86.6 fL (80.0-94.0); MEAN PLATELET VOLUME 9.7 fl (7.4-10.4); MONOCYTES % 9.3 % (2.0-8.0); NEUTROPHILS % 66.3 % (40.0-76.0); PLATELET 255 x1000/uL (130-400); RED BLOOD CELL COUNT 4.82 mill/uL (4.7-6.1); RED CELL DISTRIBUTION WIDTH 14.6 % (11.6-14.6)
[2020-06-22 12:17] LABS: CHLORIDE 107 mEq/L (98-107)
[2020-06-22] MEDS ORDERED: ASPIRIN 81MG TABLET PO ONE (13:00)
[2020-06-22] MEDS ORDERED: FUROSEMIDE 20MG/2ML VIAL IVP ONE (13:00)
[2020-06-22] MEDS ORDERED: ACETAMINOPHEN 325MG TABLET PO PRN (15:15)
[2020-06-22] MEDS ORDERED: ONDANSETRON HCL 4MG/2ML INJ IV PRN (15:15)
[2020-06-22] MEDS ORDERED: CLONIDINE 0.1MG TABLET PO PRN (15:15)
[2020-06-22] MEDS ORDERED: DIPHENHYDRAMINE 50MG/ML VIAL IV PRN (15:15)
[2020-06-22 17:08] LABS: CLARITY URINE CLEAR (CLEAR); COLOR URINE YELLOW (YELLOW); KETONES URINE NEGATIVE (NEGATIVE); LEUKOCYTE ESTERASE URINE NEGATIVE (NEGATIVE); NITRITE URINE NEGATIVE (NEGATIVE); OCCULT BLOOD URINE NEGATIVE (NEGATIVE); PROTEIN URINE NEGATIVE (NEGATIVE); SPECIFIC GRAVITY URINE 1.018 (1.005-1.030); UROBILINOGEN URINE 0.2 E.U./dL (0.2-1.0)
[2020-06-22 17:43] LABS: *AMPHETAMINES SCREEN URINE NEGATIVE (NEGATIVE); *BARBITURATES SCREEN URINE NEGATIVE (NEGATIVE); *BENZODIAZEPINES SCREEN URINE NEGATIVE (NEGATIVE); *COCAINE SCREEN URINE NEGATIVE (NEGATIVE); METHADONE URINE SCREEN NEGATIVE (NEGATIVE); OPIATES URINE SCREEN NEGATIVE (NEGATIVE); PHENCYCLIDINE URINE SCREEN NEGATIVE (NEGATIVE)
[2020-06-22 17:44] LABS: CANNABINOID URINE SCREEN NEGATIVE (NEGATIVE)
[2020-06-22 20:00] VITALS: BP 166/84
[2020-06-22 21:00] VITALS: BP 166/84
[2020-06-22] MEDS: ATORVASTATIN CALCIUM 40MG TABLET PO SCH (21:32)
[2020-06-22 23:49] LABS: CREATINE KINASE MB FRACTION 1.1 ng/mL (0.5-3.6)
[2020-06-23] VITALS: BP 130/73
[2020-06-23 04:00] VITALS: BP 141/60
[2020-06-23 07:29] LABS: CHLORIDE 107 mEq/L (98-107)
[2020-06-23 07:32] LABS: BASOPHILS % 0.7 % (0.0-2.0); EOSINOPHILS % 2.3 % (0.0-5.0); HEMATOCRIT. 41.6 % (42.0-52.0); HEMOGLOBIN. 13.7 g/dL (14.0-18.0); LYMPHOCYTES % 23.7 % (20.0-50.0); MEAN CORPUSCULAR HEMOGLOBIN 28.3 pg (28.0-32.0); MEAN CORPUSCULAR VOLUME 86.1 fL (80.0-94.0); MEAN PLATELET VOLUME 9.6 fl (7.4-10.4); MONOCYTES % 11.4 % (2.0-8.0); NEUTROPHILS % 61.9 % (40.0-76.0); PLATELET 241 x1000/uL (130-400); RED BLOOD CELL COUNT 4.83 mill/uL (4.7-6.1); RED CELL DISTRIBUTION WIDTH 14.4 % (11.6-14.6)
[2020-06-23 07:39] LABS: LDL CHOLESTEROL 75 mg/dL (5-100)
[2020-06-23 07:41] LABS: CREATINE KINASE 37 IU/L (39-308); HDL CHOLESTEROL 41 mg/dL (40-59)
[2020-06-23 07:43] LABS: CREATINE KINASE MB FRACTION < 1.0 ng/mL (0.5-3.6)
[2020-06-23 08:00] VITALS: BP 138/76
[2020-06-23] MEDS: ASPIRIN 81MG EC TABLET PO SCH (09:28)
[2020-06-23] MEDS: CLOPIDOGREL 75MG TABLET PO SCH (09:28)
[2020-06-23] MEDS: METOPROLOL TARTRATE 25MG TABLET PO SCH (09:28)
[2020-06-23 12:00] VITALS: BP 128/67
[2020-06-23] MEDS ORDERED: ALBUTEROL 6.7GM HFA INHALER ORI PRN (12:00)
[2020-06-23] MEDS ORDERED: DEXTROSE 50% WATER 50ML SYRINGE IV PRN (12:45)
[2020-06-23] MEDS: ENOXAPARIN 30MG/0.3ML SYR SUBCUT SCH ×2 (12:53→22:00)
[2020-06-23] MEDS: AZITHROMYCIN 250 MG in DEXT 5% WATER 250 ML IV SCH (14:39)
[2020-06-23] MEDS: CEFTRIAXONE 1,000 MG in DEXTROSE 5% WATER 50 ML IV SCH (14:39)
[2020-06-23 16:00] VITALS: BP 157/88
[2020-06-23] MEDS: BLOOD SUGAR DIAGNOSTIC STRIP TEST SCH ×2 (16:40→21:02)
[2020-06-23] MEDS: INSULIN LISPRO 100 UNITS/ML SUBCUT SCH ×2 (17:41→21:58)
[2020-06-23 20:00] VITALS: BP 141/77
[2020-06-23] MEDS: ATORVASTATIN CALCIUM 40MG TABLET PO SCH (21:50)
[2020-06-24] VITALS: BP 123/85
[2020-06-24 04:00] VITALS: BP 135/84
[2020-06-24] MEDS: BLOOD SUGAR DIAGNOSTIC STRIP TEST SCH ×4 (06:39→20:04)
[2020-06-24] MEDS: INSULIN LISPRO 100 UNITS/ML SUBCUT SCH ×4 (06:39→20:05)
[2020-06-24 08:00] VITALS: BP 152/84
[2020-06-24] MEDS: ASPIRIN 81MG EC TABLET PO SCH (08:47)
[2020-06-24] MEDS: METOPROLOL TARTRATE 25MG TABLET PO SCH (08:47)
[2020-06-24] MEDS: CLOPIDOGREL 75MG TABLET PO SCH (08:47)
[2020-06-24] MEDS: ENOXAPARIN 30MG/0.3ML SYR SUBCUT SCH ×2 (08:49→20:06)
[2020-06-24 10:42] LABS: BASOPHILS % 0.6 % (0.0-2.0); EOSINOPHILS % 1.5 % (0.0-5.0); HEMATOCRIT. 42.1 % (42.0-52.0); LYMPHOCYTES % 19.2 % (20.0-50.0); MEAN CORPUSCULAR HEMOGLOBIN 28.7 pg (28.0-32.0); MEAN CORPUSCULAR VOLUME 86.2 fL (80.0-94.0); MEAN PLATELET VOLUME 9.6 fl (7.4-10.4); MONOCYTES % 9.5 % (2.0-8.0); NEUTROPHILS % 69.2 % (40.0-76.0); PLATELET 240 x1000/uL (130-400); RED BLOOD CELL COUNT 4.89 mill/uL (4.7-6.1); RED CELL DISTRIBUTION WIDTH 14.4 % (11.6-14.6)
[2020-06-24 10:59] LABS: CHLORIDE 104 mEq/L (98-107)
[2020-06-24 12:00] VITALS: BP 148/78
[2020-06-24] MEDS: CEFTRIAXONE 1,000 MG in DEXTROSE 5% WATER 50 ML IV SCH (13:14)
[2020-06-24] MEDS: AZITHROMYCIN 250 MG in DEXT 5% WATER 250 ML IV SCH (14:24)
[2020-06-24] MEDS ORDERED: RANOLAZINE 500 MG TAB.SR.12H PO SCH (15:00)
[2020-06-24 16:00] VITALS: BP 143/84
[2020-06-24 20:00] VITALS: BP 128/69
[2020-06-24] MEDS: ATORVASTATIN CALCIUM 40MG TABLET PO SCH (20:04)
[2020-06-24] MEDS: RANOLAZINE 500 MG TAB.SR.12H PO SCH (22:01)
[2020-06-25] VITALS: BP 118/59
[2020-06-25 04:00] VITALS: BP 116/66
[2020-06-25] MEDS: BLOOD SUGAR DIAGNOSTIC STRIP TEST SCH ×2 (06:05→11:54)
[2020-06-25] MEDS: INSULIN LISPRO 100 UNITS/ML SUBCUT SCH ×2 (06:19→13:08)
[2020-06-25 08:00] VITALS: BP 137/77
[2020-06-25] MEDS: ENOXAPARIN 30MG/0.3ML SYR SUBCUT SCH (09:01)
[2020-06-25] MEDS: RANOLAZINE 500 MG TAB.SR.12H PO SCH (09:01)
[2020-06-25] MEDS: ASPIRIN 81MG EC TABLET PO SCH (09:01)
[2020-06-25] MEDS: CLOPIDOGREL 75MG TABLET PO SCH (09:01)
[2020-06-25] MEDS: METOPROLOL TARTRATE 25MG TABLET PO SCH (09:01)
[2020-06-25 10:19] LABS: BASOPHILS % 0.8 % (0.0-2.0); EOSINOPHILS % 1.4 % (0.0-5.0); HEMATOCRIT. 43.7 % (42.0-52.0); HEMOGLOBIN. 14.5 g/dL (14.0-18.0); LYMPHOCYTES % 23.5 % (20.0-50.0); MEAN CORPUSCULAR HEMOGLOBIN 28.5 pg (28.0-32.0); MEAN CORPUSCULAR VOLUME 85.7 fL (80.0-94.0); MEAN PLATELET VOLUME 9.8 fl (7.4-10.4); MONOCYTES % 9.7 % (2.0-8.0); NEUTROPHILS % 64.6 % (40.0-76.0); PLATELET 246 x1000/uL (130-400); RED BLOOD CELL COUNT 5.09 mill/uL (4.7-6.1); RED CELL DISTRIBUTION WIDTH 14.1 % (11.6-14.6)
[2020-06-25 10:31] LABS: CHLORIDE 103 mEq/L (98-107)
[2020-06-25 12:00] VITALS: BP 128/75
[2020-06-25] MEDS: CEFTRIAXONE 1,000 MG in DEXTROSE 5% WATER 50 ML IV SCH (13:08)
[2020-06-25] MEDS: AZITHROMYCIN 250 MG in DEXT 5% WATER 250 ML IV SCH (14:17)
[2020-06-25 14:49] VITALS: BP 128/72
[2020-06-25] MEDS ORDERED: INSULIN LISPRO 100 UNITS/ML SUBCUT SCH (16:40)
[2020-06-25] MEDS ORDERED: INSULIN GLARGINE UD 100 UNITS/ML SYR SUBCUT SCH (22:00)
[2020-06-26] MEDS ORDERED: AZITHROMYCIN 500 MG TABLET PO SCH (09:00)
== END 2020-06-25 16:00 | disposition home or self-care (01) | DRG 871 ==
LOC: ER 10:31 → 7EST 13:11 → ENRESERV 19:56
PROVIDERS: ADMIT Internal Medicine; ATTEND Internal Medicine
DX: A41.89 Other specified sepsis (principal); U07.1 COVID-19; J96.01 Acute respiratory failure with hypoxia; E11.42 Type 2 diabetes mellitus with diabetic polyneuropathy; E11.51 Type 2 diabetes mellitus with diabetic peripheral angiopathy without gangrene; J20.8 Acute bronchitis due to other specified organisms; E78.5 Hyperlipidemia, unspecified; I11.9 Hypertensive heart disease without heart failure; I25.10 Atherosclerotic heart disease of native coronary artery without angina pectoris; E66.01 Morbid (severe) obesity due to excess calories; E78.00 Pure hypercholesterolemia, unspecified; I25.82 Chronic total occlusion of coronary artery; Z86.73 Personal history of transient ischemic attack (TIA), and cerebral infarction without residual deficits; Z95.1 Presence of aortocoronary bypass graft; Z95.5 Presence of coronary angioplasty implant and graft; Z98.62 Peripheral vascular angioplasty status; Z79.02 Long term (current) use of antithrombotics/antiplatelets; Z79.82 Long term (current) use of aspirin; Z79.84 Long term (current) use of oral hypoglycemic drugs; Z79.899 Other long term (current) drug therapy; Z82.49 Family history of ischemic heart disease and other diseases of the circulatory system; Z79.1 Long term (current) use of non-steroidal anti-inflammatories (NSAID); Z79.51 Long term (current) use of inhaled steroids; Z68.34 Body mass index [BMI] 34.0-34.9, adult
CPT/HCPCS: 36415; 71045; 80048; 80053; 80061; 80305; 81003; 82550; 82553; 82962; 83036; 83880; 84443; 84484; 85025; 87635; 93005; 93970; 99285; J0456; J0696; J1650; J1815; J1940; J7060

== ENCOUNTER → 2021-12-17 | Outpatient (CLI) | payer MEDICARE, MEDICAID ==
[~2021-12-17] MED LIST changes: +CLOP-31 MT; +CLOP-31 PO; -CLOP75TA4 MT; -GABA-531 PO; +GABA-532 PO
== END | disposition home or self-care (01) ==
LOC: LAB 09:01
PROVIDERS: ATTEND Specialist
DX: R06.02 Shortness of breath (principal); Z20.822 Contact with and (suspected) exposure to COVID-19
CPT/HCPCS: 87426

== ENCOUNTER → 2021-12-31 | Outpatient (CLI) | payer MEDICARE, MEDICAID ==
[~2021-12-31] MED LIST changes: +ASPI-1406 PO; +ATOR40TA70 PO; -CLOP-31 MT; -CLOP-31 PO; +CLOP75TA33 PO; -DAPA10TA MT; +DAPA10TA PO; -DOCU-138 PO; +GABA-533 PO; -GLIM4TAB36 MT; -GLIP10TA10 PO; -OLME20TA13 PO; -PIOG45TA5 PO; -RANO500T3 PO; +TAMS-11 PO; -UBID100C12 PO; +VIT D 3; +vit B 12
== END | disposition home or self-care (01) ==
LOC: LAB 07:39
PROVIDERS: ATTEND Specialist
DX: R05.9 Cough, unspecified (principal); Z20.822 Contact with and (suspected) exposure to COVID-19
CPT/HCPCS: 87426; C9803